=== PATIENT | female | born 1955 | race Native Hawaiian/Other Pacific Islander ===

== ENCOUNTER → 2017-12-27 | Outpatient (CLI) | payer MEDICARE ==
[~2017-12-27] MED LIST: DENOSUMAB 60 MG/ML 1 ML SYRINGE SQ ONE
[2017-12-27 13:57] VITALS: RESP 16
== END | disposition home or self-care (01) ==
LOC: PROCWHC3 13:38
PROVIDERS: ATTEND Internal Medicine Hematology & Oncology
DX: Z51.81 Encounter for therapeutic drug level monitoring (principal); Z79.811 Long term (current) use of aromatase inhibitors
CPT/HCPCS: 96372

== ENCOUNTER → 2018-12-11 | Day surgery (SDC) | payer MEDICARE | END | disposition home or self-care (01) | LOC: RADMRIMAIN 13:51 | PROVIDERS: ATTEND Internal Medicine Gastroenterology | DX: K50.90 Crohn's disease, unspecified, without complications (principal); Z53.9 Procedure and treatment not carried out, unspecified reason ==

== ENCOUNTER → 2018-12-11 | Outpatient (CLI) | payer MEDICARE ==
[2018-12-11 14:07] LABS: Blood Urea Nitrogen 11 mg/dL (7-17)
== END | disposition home or self-care (01) ==
LOC: RADMRIMAIN 13:29
PROVIDERS: ATTEND Internal Medicine Gastroenterology
DX: K50.90 Crohn's disease, unspecified, without complications (principal)
CPT/HCPCS: 82565; 84520

== ENCOUNTER → 2019-02-14 | Outpatient (CLI) | payer MEDICARE ==
[2019-02-14 13:48] LABS: Basophils # (A) 0.1 k/uL (0-0.2); Basophils % (A) 1 %; Eosinophils # (A) 0.3 k/uL (0-0.7); Eosinophils % (A) 3 %; HCT 41.7 % (34.0-46.0); HGB 13.6 gm/dL (11.4-16.0); Lymphocytes # (A) 3.1 k/uL (1.0-4.8); Lymphocytes % (A) 35 %; MCH 29.8 pg (25.0-35.0); MCHC 32.7 g/dL (31.0-37.0); Mean Platelet Volume 7.2; Monocytes # (A) 0.4 k/uL (0-1.0); Monocytes % (A) 5 %; Neutrophils # (A) 4.7 k/uL (1.3-7.7); Neutrophils % (A) 54 %; Platelet Count 241 k/uL (150-450); RBC 4.58 m/uL (3.80-5.40); RDW 14.1 % (11.5-15.5); WBC 8.6 k/uL (3.8-10.6)
== END ==
LOC: LABPAT 11:43
PROVIDERS: ATTEND Obstetrics & Gynecology
DX: Z01.812 Encounter for preprocedural laboratory examination (principal)
CPT/HCPCS: 85025

== ENCOUNTER 2019-02-18 06:28 | Day surgery (SDC) | payer MEDICARE ==
[2019-02-13 15:49] VITALS: BMI 37.5
[~2019-02-18 06:28] MED LIST changes: -DENOSUMAB 60 MG/ML 1 ML SYRINGE SQ ONE; +DEXAMETHASONE SOD PHOSPHATE 10 MG/ML 1 ML VIAL IV ONE; +LACTATED RINGERS 1,000 ML IV SCH; +MIDAZOLAM (PF) 2 MG/2 ML VIAL IV PRN; +ONDANSETRON 4 MG/2 ML VIAL IVP ONE; +Pre Op ABX Message 1 EACH MISC MISCELLANE ONE; +SCOPOLAMINE 1.5MG/72HR PATCH TRANSDERM ONE; +fentaNYL (PF) 50 MCG/ML 2 ML AMP IV PRN
[2019-02-18] MEDS ORDERED: LIDOCAINE 1% 20 ML VIAL (10MG/ML) FOR IV START INTRADERMA ONE (07:15)
[2019-02-18] MEDS ORDERED: MIDAZOLAM 2 MG/2 ML VIAL ONE (07:26)
[2019-02-18] MEDS ORDERED: PROPOFOL 10 MG/ML 20 ML VIAL IV ONE (07:26)
[2019-02-18] MEDS ORDERED: LIDOCAINE 1% INJ 10MG/ML (20 ML MDV) ONE (07:26)
[2019-02-18] MEDS ORDERED: fentaNYL (PF) 50 MCG/ML 2 ML AMP ONE (07:26)
[2019-02-18] MEDS ORDERED: SUCCINYLCHOLINE CHLORIDE 100 MG/5 ML SYR IV ONE (07:26)
[2019-02-18 07:30] LABS: Glucose,Whole Blood 149 mg/dL (75-99)
[2019-02-18] MEDS ORDERED: BUPIVACAINE (PF) 0.5% 30 ML VIAL SQ ONE ×2 (07:56)
--- NOTE | 2019-02-18 08:24 | P.OP ---
Date of Procedure: 02/18/19 Preoperative Diagnosis: Vulvar abscess Postoperative Diagnosis: Same Procedure(s) Performed: Wide local excision Anesthesia: SHREYA Surgeon: Rui Wall Estimated Blood Loss (ml): 5 Pathology: other (Pap smear and wide local excision of left labia) Condition: stable Disposition: same day Operative Findings: Wide local excision performed no fistulous tract could be identified, no discharge or drainage coming from abscess at time of excision Description of Procedure: Patient was taken to the operating suite where a general anesthetic was found be adequate. She was prepped and draped in normal sterile fashion and placed in dorsal lithotomy position. Initially a pediatric specialist speculum was used to obtain a Pap smear tissue was obtained and sent to pathology for evaluation. Once this was completed. Speculum was removed and using local anesthetic was injected around the abscess and skin change area. At the base of her abscess there was a approximately 1 x 1 cm skin change with potential for DEBBY and therefore needed excision. Once local anesthetic was injected was injected a 15 blade was used to create an elliptical incision around this area which was contiguous so the site was approximated 3.5 x 2 cm that was excised. Once compl etely excised was sent to pathology for evaluation. Once excised I did try and find a fistulous tract as about 5 cm superior to our excision site was the start of what appears to be her hernia in that she has a very very large hernia in her lower abdomen secondary to history of multiple other fistulous created from her Crohn's disease. I was unable to trace any areas that appear to be fistula back up into that area however. Once this was completed 3-0 Vicryl was used to reapproximate the skin in an interrupted fashion was very close sutures to ensure that they can did not separate are palpable apart. Once completed all incidents removed. Sponge, lap, needle counts were all correct 2. Patient was then taken to the recovery room in stable and satisfactory condition. Plan - Discharge Summary Discharge Rx Participant: No New Discharge Prescriptions: No Action Calcium Carbonate/Vitamin D3 [Calcium 600-Vit D3 400 Tablet] 1 tab PO DAILY Lisinopril [Zestril] 2.5 mg PO DAILY Anastrozole [Arimidex] 1 mg PO DAILY Venlafaxine HCl [Effexor] 75 mg PO DAILY Exenatide Microspheres [Bydureon Pen] 2 mg SQ JACINTO Morphine Sulfate 15 mg PO Q4H Discharge Medication List Anastrozole [Arimidex] 1 mg PO DAILY 12/27/17 [History] Calcium Carbonate/Vitamin D3 [Calcium 600-Vit D3 400 Tablet] 1 tab PO DAILY 12/27/17 [History] Lisinopril [Zestril] 2.5 mg PO DAILY 12/27/17 [History] Venlafaxine HCl [Effexor] 75 mg PO DAILY 12/27/17 [History] Exenatide Microspheres [Bydureon Pen] 2 mg SQ JACINTO 02/13/19 [History] Morphine Sulfate 15 mg PO Q4H 02/18/19 [History] Follow up Appointment(s)/Referral(s): Rui Wall DO [Doctor of Osteopathic Medicine] - 1 Week Activity/Diet/Wound Care/Special Instructions: No heavy lifting limited stairs and driving, pelvic rest. If any high temperatures, heavy bleeding, or severe pain call my office. Expect some oozing and bleeding around the incision Discharge Disposition: HOME SELF-CARE
[2019-02-18 08:25] VITALS: TEMP 96.9
[2019-02-18] MEDS ORDERED: HYDROmorphone 1 MG/ML 1 ML SYRINGE IVP ONE (08:40)
[2019-02-18 08:51] VITALS: RESP 16
[2019-02-18 09:07] VITALS: BP 107/70; PULSE 92
== END 2019-02-18 09:33 | disposition home or self-care (01) ==
LOC: OR 06:28
PROVIDERS: ATTEND Obstetrics & Gynecology
DX: N76.4 Abscess of vulva (principal); K50.90 Crohn's disease, unspecified, without complications; E11.9 Type 2 diabetes mellitus without complications; J43.9 Emphysema, unspecified; M85.80 Other specified disorders of bone density and structure, unspecified site; G35 Multiple sclerosis; Z86.711 Personal history of pulmonary embolism; Z85.3 Personal history of malignant neoplasm of breast; F32.9 Major depressive disorder, single episode, unspecified; M19.90 Unspecified osteoarthritis, unspecified site; I65.29 Occlusion and stenosis of unspecified carotid artery; I34.0 Nonrheumatic mitral (valve) insufficiency; Z79.891 Long term (current) use of opiate analgesic; Z90.49 Acquired absence of other specified parts of digestive tract; Z87.891 Personal history of nicotine dependence; Z79.84 Long term (current) use of oral hypoglycemic drugs; Z79.811 Long term (current) use of aromatase inhibitors; Z79.899 Other long term (current) drug therapy; Z88.2 Allergy status to sulfonamides
CPT/HCPCS: 88304; 11424; J2250; J1100; J2405; J2001; J3010; J1170; J0330; J2704

== ENCOUNTER → 2020-05-04 | Outpatient (CLI) | payer MEDICARE ==
[2020-05-04 13:38] VITALS: BP 139/83; PULSE 77; RESP 18
--- NOTE | 2020-05-04 14:43 | P.PAINCN ---
History of Present Illness - Reason for Consult Consult date: 05/04/20 - History of Present Illness This is a 64-year-old patient referred by Dr. Cruz with a chief complaint of chronic pain in thoracic region around T5-6 level. Pain began in July 2019, initially well managed with methocarbamol. Approximately 2 months ago, pain became worse. She does not describe any inciting event. Pain is described as a deep pressure, "bandlike", radiating to bilateral thoracic paraspinal muscles as well as up to bilateral shoulders. Pain is worse with standing, leaning forward over the counter and better with sitting, laying down. Pain is rated as 4/10 at best to 8/10 at worst. Patient has been taking medications from primary care physician including morphine 15 mg approximately every other day and methocarbamol. with some relief. She spent side effects from the morphine in the form of fatigue, drowsiness. Patient denies new-onset weakness, bowel/bladder incontinence, or any other signs or symptoms of cauda equina syndrome. There are no signs of acute intoxication, and no indications of medication diversion or overuse. Patient has not had surgery. Patient has not had injections previously. Of note, she has been diagnosed with multiple sclerosis in the past, she denies signs and symptoms from this and has not had a flare in over 10 years. In addition to above, 13-point review of systems is also negative for chest pain, shortness of breath, changes in vision, changes in hearing, new onset weakness, abdominal pain, diarrhea, extreme fatigue, malaise, fever, skin changes, homicidal or suicidal ideation, or bowel or bladder incontinence. Physical exam: Vital Signs: Reviewed in EMR GENERAL: Well appearing, in no acute distress PSYCH: Mood and affect is appropriate. Awake, alert, and oriented SKIN: Skin color, texture, turgor normal, no rashes or lesions HEENT: Normocephalic, atraumatic. EOM intact CV: No pedal edema RESP: Respirations are unlabored, no audible wheezing GI: Abdomen non-distended MUSCULOSKELETAL: Bilateral upper and lower extremity strength is normal and symmetric. No atrophy or tone abnormalities are noted. Neck: Mild tenderness to palpation over the cervical paraspinous muscles. Normal cervical lordotic curve Thoracic spine: Tenderness to palpation along T5-6 vertebrae and paraspinal musculature. Pain is increased with twisting motions of the thoracic spine. Lumbar spine:. No pain to palpation over the lumbar spine and paraspinous muscles. Extremities: Peripheral joint ROM is full and pain free without obvious instability or laxity in all four extremities. No edema or skin discolorations noted. Gait: Gait is normal NEUR: Bilateral upper extremity coordination and muscle stretch reflexes are physiologic and symmetric.No loss of sensation is noted. Cranial nerves are grossly intact. Imaging: X-ray thoracic spine done at [facility] on 04/01/2020 shows mild superior and inferior endplate compression in the region of T5 which is progressive from prior comparison. MRI thoracic spine done on 08/07/2019 shows levoconvex scoliosis along the upper third of the thoracic spine, chronic superior endplate Schmorl's nodes at T10 and chronic superior endplate deformity of T6. Mild degenerative disc disease and midthoracic spine with small posterior disc protrusions and inferior bowl mild intravertebral disc desiccation. No spinal canal stenosis. Assessment: 1. Thoracic compression deformity 2. Thoracic degenerative disc disease 3. Thoracic spondylosis 4. Obesity Plan: 1. Explanation: Diagnoses, prognoses, and multiple treatment options including but not limited to interventional therapies, medication managemenwere discussed with the patient and all questions were answered to the patient's satisfaction. 2. Investigations: X-ray and MRI thoracic spine reviewed 3. Counseling: None 4. Procedures: We will schedule T5-6 thoracic epidural steroid injection 5. Consultations: None 6. Medications: No changes 7. Disposition: For above-mentioned procedure Past Medical History Past Medical History: Blood Disorder, Cancer, COPD, Diabetes Mellitus, Neurologic Disorder, Pulmonary Embolus (PE) Additional Past Medical History / Comment(s): multiple sclerosis, crohns,breast cancer-33 tx radiation 2015,basal skin cancer ,squamous skin cancer, ITP "post surgical" bowel resection/hernia-had hematoma also post surgery" History of Any Multi-Drug Resistant Organisms: MRSA Year Discovered:: 2012 MDRO Source:: nose Past Surgical History: Appendectomy, Bowel Resection, Breast Surgery, Cholecystectomy, Hernia Repair Additional Past Surgical History / Comment(s): bowel resections, fistula repairs, rt breast lumpectomy Past Anesthesia/Blood Transfusion Reactions: No Reported Reaction, Family History of Problems w/ Anesthesia Additional Past Anesthesia/Blood Transfusion Reaction / Comm: 2 sister PONV,no problems with prior transfusion Smoking Status: Former smoker - Past Family History Father Family Medical History: Cancer Additional Family Medical History / Comment(s): esophageal cancer Mother Family Medical History: Rheumatoid Arthritis (RA) Additional Family Medical History / Comment(s): pulm hypertension Brother(s) Family Medical History: Cancer Additional Family Medical History / Comment(s): 1 brother prostate CA, 1 brother had jaw CA Sister(s) Family Medical History: Cancer Additional Family Medical History / Comment(s): 1 sister had cervical cancer, 1 sister had uterine cancer Medications and Allergies Home Medications Medication Instructions Recorded Confirmed Type Anastrozole [Arimidex] 1 mg PO DAILY 12/27/17 05/04/20 History Calcium Carbonate/Vitamin D3 2 tab PO DAILY 12/27/17 05/04/20 History [Calcium 600-Vit D3 400 Tablet] Lisinopril [Zestril] 2.5 mg PO DAILY 12/27/17 05/04/20 History Venlafaxine HCl [Effexor] 37.5 mg PO DAILY 12/27/17 05/04/20 History Morphine Sulfate 15 mg PO Q4H 02/18/19 05/04/20 History Dulaglutide [Trulicity] 0.75 mg SQ Q7D 04/29/20 05/04/20 History Allergies Allergy/AdvReac Type Severity Reaction Status Date / Time codeine Allergy severe Verified 04/29/20 15:00 Nausea sulfasalazine Allergy severe Verified 04/29/20 15:00 [From Azulfidine] headache PQRS Measure Charge Sheet Measure #130: Documentation of Current Meds in Medical Chart: Patient's medications documented in chart Measure #226: Tobacco Use: Screen & Cessation Intervention: Pt not a tobacco user Measure #111: Pneumonia Vaccination: Pneumococcal vaccine NOT administered or previously given Measure #47: Advance Care Plan: Advance care planning discussed & documented, pt chose/unable to give Measure #412: Opioid Treatment Agreement: No documentation of signed opioid treatment agreement Measure #408: Opioid Therapy Follow-up Evaluation: Patient had NO f/u eval minimum every 3 months during opioid therapy Measure #317: Preventitive Care & Scrn High Bld Press & F/U: Normal blood pressure, f/u not required Measure #128: Body Mass Index (BMI) Screening & Follow-up: BMI documented ABOVE normal parameters - f/u documented Measure #131: Pain Assessment & Follow-up: Pain positive & plan documented, Follow-up scheduled Measure #431: Unhealthy Alcohol Use Preventative Care & Scrn: Patient not identified as an unhealthy alcohol user PQRS Narrative: Smoking Status Former smoker Pain Intensity [Back] 6 Scale Used Numeric (1 - 10) Hx Alcohol Use (MH) No Home Medications: Ambulatory Orders Anastrozole [Arimidex] 1 mg PO DAILY 12/27/17 Calcium Carbonate/Vitamin D3 [Calcium 600-Vit D3 400 Tablet] 2 tab PO DAILY 12/27/17 Lisinopril [Zestril] 2.5 mg PO DAILY 12/27/17 Venlafaxine HCl [Effexor] 37.5 mg PO DAILY 12/27/17 Morphine Sulfate 15 mg PO Q4H 02/18/19 Dulaglutide [Trulicity] 0.75 mg SQ Q7D 04/29/20
== END | disposition home or self-care (01) ==
LOC: PNWHC3 12:48
PROVIDERS: ATTEND Anesthesiology
DX: M51.34 Other intervertebral disc degeneration, thoracic region (principal); M47.814 Spondylosis without myelopathy or radiculopathy, thoracic region; E66.9 Obesity, unspecified; M43.8X4 Other specified deforming dorsopathies, thoracic region; Z79.891 Long term (current) use of opiate analgesic; Z79.899 Other long term (current) drug therapy; Z88.5 Allergy status to narcotic agent; Z88.2 Allergy status to sulfonamides; Z87.891 Personal history of nicotine dependence
CPT/HCPCS: 99201

== ENCOUNTER 2020-05-13 10:30 | Day surgery (SDC) | payer MEDICARE ==
[2020-05-10 16:20] VITALS: BMI 37.5
[2020-05-13] MEDS ORDERED: LACTATED RINGERS 1,000 ML IV SCH (10:37)
[2020-05-13 10:47] VITALS: RESP 16; TEMP 98.3
[2020-05-13] MEDS ORDERED: LIDOCAINE 1% (10MG/ML) FOR IV START INTRADERMA ONE (11:05)
[2020-05-13 11:09] LABS: Glucose,Whole Blood 105 mg/dL (75-99)
[2020-05-13] MEDS ORDERED: fentaNYL (PF) 50 MCG/ML 2 ML AMP ONE (11:29)
[2020-05-13] MEDS ORDERED: DEXAMETHASONE SOD PHOSPHATE 10 MG/ML 1 ML VIAL ONE (11:29)
[2020-05-13] MEDS ORDERED: MIDAZOLAM 2 MG/2 ML VIAL ONE (11:29)
[2020-05-13] MEDS ORDERED: IOPAMIDOL M200 10 ML VIAL ONE (11:29)
--- NOTE | 2020-05-13 12:08 | P.PCN ---
Date of Procedure: 05/13/20 Procedure(s) Performed: Diagnosis: thoracic radiculopathy thoracic degenerative disc disease POSTOPERATIVE DIAGNOSIS: Diagnoses: thoracic radiculopathy thoracic degenerative disc disease PROCEDURE thoracic Epidural steroid injection under fluoroscopic guidance at the T5-6 interspace using right paramedian approach thoracic epidurogram ANESTHESIA: Local with 1% lidocaine 3 ml and IV sedation with Versed and fentanyl, sedation time 23 minutes Fluoroscopy was used for the procedure and images were saved in the radiology portion of the chart. EBL: Minimal PROCEDURE INDICATION: The patient presents with thoracic radicular symptoms unresponsive to conservative treatment. This is the first thoracic epidural steroid injection. PROCEDURE DESCRIPTION / TECHNIQUE: The patient was seen and identified in the preoperative area. Risks, benefits, complications including but not limited to infections ,bleeding ,allergic reaction to the medications ,nerve damage and incomplete pain relief, and alternatives were discussed with the patient. The patient agreed to proceed with the procedure and signed the consent. IV was started, and vital signs were stable. Patient was taken to the OR and time out was completed. The patient was placed in the prone position on procedure table and a pillow was placed under the chest area. The thoracic area was prepped and draped in the usual sterile fashion. Conscious sedation was used during the procedure to decrease patients anxiety. Vital signs was monitored during the entire procedure. Using anterior-posterior fluoroscopy, the T5-6 interlaminar space was identified by counting from the C7 vertebral level and the skin over this site was marked and then infiltrated with 1% lidocaine subcutaneously. Subsequently, a 20-gauge Tuohy epidural needle was inserted and advanced toward the epidural space using the loss of resistance technique and guided by AP and lateral fluoroscopy. The correct needle position in the epidural space was verified. After negative aspiration for blood and CSF and in the absence of paresthesias, Isovue 200 2 m L's was injected under live fluoroscopy with good epidural spread. After negative aspiration, a 5 ml mixture containing 10 mg of dexamethasone, 3 mL of preservative free normal saline and 1 mL of 1% lidocaine was injected. Needle was withdrawn intact, skin was cleansed, and bandages were applied. COMPLICATIONS: None DISPOSITION / PLANS: The patient was placed in a supine position and transferred to the recovery area in a stable condition for observation. There was no evidence of lower extremity motor or sensory deficit after the procedure. Patient was discharged from the recovery room after meeting discharge criteria. Home discharge instructions were given to the patient by the staff. The patient will be scheduled a repeat procedure in 4 weeks.
[2020-05-13] MEDS ORDERED: IV FLUID CONTINUATION 1,000 ML IV ONE (12:10)
--- NOTE | 2020-05-13 12:17 | FL ---
Fluoroscopy HISTORY: Pain 24 seconds fluoroscopy time supplied to the referring clinician. 3 intraoperative C-arm images docum ent the procedure. See dictated report from anesthesia.
[2020-05-13 12:27] VITALS: BP 145/84; PULSE 90
== END 2020-05-13 12:36 | disposition home or self-care (01) ==
LOC: ORPAIN 10:30
PROVIDERS: ATTEND Anesthesiology
DX: M51.14 Intervertebral disc disorders with radiculopathy, thoracic region (principal); M47.24 Other spondylosis with radiculopathy, thoracic region; J44.9 Chronic obstructive pulmonary disease, unspecified; G96.9 Disorder of central nervous system, unspecified; E11.9 Type 2 diabetes mellitus without complications; D75.9 Disease of blood and blood-forming organs, unspecified; E66.9 Obesity, unspecified; Z87.891 Personal history of nicotine dependence; Z85.828 Personal history of other malignant neoplasm of skin; Z86.711 Personal history of pulmonary embolism; Z86.69 Personal history of other diseases of the nervous system and sense organs; Z85.3 Personal history of malignant neoplasm of breast; Z87.19 Personal history of other diseases of the digestive system; Z80.0 Family history of malignant neoplasm of digestive organs; Z82.41 Family history of sudden cardiac death; Z82.49 Family history of ischemic heart disease and other diseases of the circulatory system; Z80.42 Family history of malignant neoplasm of prostate; Z80.8 Family history of malignant neoplasm of other organs or systems; Z90.49 Acquired absence of other specified parts of digestive tract; Z98.890 Other specified postprocedural states; Z88.2 Allergy status to sulfonamides; Z88.5 Allergy status to narcotic agent; Z79.52 Long term (current) use of systemic steroids; Z79.84 Long term (current) use of oral hypoglycemic drugs; Z79.899 Other long term (current) drug therapy; Z79.811 Long term (current) use of aromatase inhibitors; Z79.891 Long term (current) use of opiate analgesic; Z68.37 Body mass index [BMI] 37.0-37.9, adult
CPT/HCPCS: 62321; J2250; J1100; J3010; Q9966; 99152; 99153

== ENCOUNTER → 2020-06-02 | Outpatient (CLI) | payer MEDICARE ==
[2020-06-02 13:11] VITALS: BP 125/77; PULSE 81; RESP 16; TEMP 95
--- NOTE | 2020-06-02 13:44 | P.PAINPG ---
Subjective Progress Note Date: 06/01/20 This is a 64-year-old patient originally was referred by Dr. Cruz with a chief complaint of chronic pain in thoracic region around T5-6 level. To recap Pain began in July 2019, initially well managed with methocarbamol. Approximately 2 months ago, pain became worse. She does not describe any inciting event. Patient denies new-onset weakness, bowel/bladder incontinence, or any other signs or symptoms of cauda equina syndrome. There are no signs of acute intoxication, and no indications of medication diversion or overuse. On May 13 2020 we performed a T5 to T6 epidural steroid injection with the right paramedian approach. She is here for followup Patient notes that her recent epidural steroid injection did not help at all. Pain is described as a deep pressure, "bandlike", radiating to bilateral thoracic paraspinal muscles as well as up to bilateral shoulders. Pain is worse with standing, leaning forward over the counter and better with sitting, laying down. Pain is rated as 4/10 at best to 8/10 at worst. Patient has been taking medications from primary care physician including morphine 15 mg approximately every other day and methocarbamol. with some relief. She spent side effects from the morphine in the form of fatigue, drowsiness. Of note, she has been diagnosed with multiple sclerosis in the past, she denies signs and symptoms from this and has not had a flare in over 10 years. In addition to above, 13-point review of systems is also negative for chest pain, shortness of breath, changes in vision, changes in hearing, new onset weakness, abdominal pain, diarrhea, extreme fatigue, malaise, fever, skin changes, homicidal or suicidal ideation, or bowel or bladder incontinence. Physical exam: Vital Signs: Reviewed in EMR GENERAL: Well appearing, in no acute distress PSYCH: Mood and affect is appropriate. Awake, alert, and oriented SKIN: Skin color, texture, turgor normal, no rashes or lesions HEENT: Normocephalic, atraumatic. EOM intact CV: No pedal edema RESP: Respirations are unlabored, no audible wheezing GI: Abdomen non-distended MUSCULOSKELETAL: Bilateral upper and lower extremity strength is normal and symmetric. No atrophy or tone abnormalities are noted. Neck: Mild tenderness to palpation over the cervical paraspinous muscles. Normal cervical lordotic curve Thoracic spine: Tenderness to palpation along T5-8 vertebrae and paraspinal musculature. Pain is increased with twisting motions of the thoracic spine. Multiple trigger points present over the paraspinal musculature Lumbar spine:. No pain to palpation over the lumbar spine and paraspinous muscles. Extremities: Peripheral joint ROM is full and pain free without obvious instability or laxity in all four extremities. No edema or skin discolorations noted. Gait: Gait is normal NEUR: Bilateral upper extremity coordination and muscle stretch reflexes are physiologic and symmetric.No loss of sensation is noted. Cranial nerves are grossly intact. Imaging: X-ray thoracic spine done at [facility] on 04/01/2020 shows mild superior and inferior endplate compression in the region of T5 which is progressive from prior comparison. MRI thoracic spine done on 08/07/2019 shows levoconvex scoliosis along the upper third of the thoracic spine, chronic superior endplate Schmorl's nodes at T10 and chronic superior endplate deformity of T6. Mild degenerative disc disease and midthoracic spine with small posterior disc protrusions and inferior bowl mild intravertebral disc desiccation. No spinal canal stenosis. Assessment: 1. Thoracic compression deformity 2. Thoracic degenerative disc disease 3. Thoracic spondylosis 4. Obesity Plan: 1. Explanation: Diagnoses, prognoses, and multiple treatment options including but not limited to interventional therapies, medication managemenwere discussed with the patient and all questions were answered to the patient's satisfaction. 2. Investigations: X-ray and MRI thoracic spine reviewed. Patient had a question given the fact that the x-ray does mention a small compression at the region of T5 with the MRI does not. She wonders kyphoplasty would be a good option for her. At this point it is not clear that a kyphoplasty would help her her pain given that I'm not sure what the acuity of the fracture. 3. Counseling: None 4. Procedures: We will schedule for bilateral thoracic paraspinal trigger points. Also would like to inject her scapulothoracic bursa which is a common etiology for pain around the bra line radiating outwards, can be done same trigger point approach on the day of the procedure. In regards to her interest in kyphoplasty, I mentioned that we could consider a referral to neurosurgery for her if trigger points did not help. We did also long talk about the thought of a medial branch workup for this type of pain which she would be willing to try if the trigger points did not work. 5. Consultations: None 6. Medications: No changes 7. Disposition: For thoracic trigger point injections PQRS Measure Charge Sheet Measure #226: Tobacco Use: Screen & Cessation Intervention: Pt not a tobacco user Measure #111: Pneumonia Vaccination: Pneumococcal vaccine administered or previously received Measure #47: Advance Care Plan: Advance care planning discussed & documented, pt chose/unable to give Measure #412: Opioid Treatment Agreement: No documentation of signed opioid treatment agreement Measure #408: Opioid Therapy Follow-up Evaluation: Patient had NO f/u eval minimum every 3 months during opioid therapy Measure #131: Pain Assessment & Follow-up: Pain positive & plan documented, Follow-up scheduled PQRS Narrative: Smoking Status Former smoker Pain Intensity [Back] 5 Scale Used Numeric (1 - 10) Hx Alcohol Use (MH) No Home Medications: Ambulatory Orders Anastrozole [Arimidex] 1 mg PO DAILY 12/27/17 Venlafaxine HCl [Effexor] 37.5 mg PO DAILY 12/27/17 lisinopriL [Zestril] 2.5 mg PO DAILY 12/27/17 Morphine Sulfate 15 mg PO DAILY PRN 02/18/19 Dulaglutide [Trulicity] 0.75 mg SQ Q7D 04/29/20 Calcium Carbonate/Vitamin D3 [Calcium 600-Vit D3 800 Caplet] 2 each PO DAILY 05/10/20 Controlled Substance Measures - Controlled Substance Measures Is patient prescribed a controlled substance at discharge?: No
== END | disposition home or self-care (01) ==
LOC: PNWHC3 12:46
PROVIDERS: ATTEND Anesthesiology
DX: M51.34 Other intervertebral disc degeneration, thoracic region (principal); M47.814 Spondylosis without myelopathy or radiculopathy, thoracic region; M53.84 Other specified dorsopathies, thoracic region; E66.9 Obesity, unspecified; Z68.37 Body mass index [BMI] 37.0-37.9, adult; Z79.899 Other long term (current) drug therapy; Z79.891 Long term (current) use of opiate analgesic
CPT/HCPCS: 99211

== ENCOUNTER 2020-06-08 11:24 | Day surgery (SDC) | payer MEDICARE ==
[2020-06-08 11:44] VITALS: RESP 16; TEMP 98.5
[2020-06-08] MEDS ORDERED: LACTATED RINGERS 1,000 ML IV ONE (11:51)
[2020-06-08] MEDS ORDERED: LIDOCAINE 1% (10MG/ML) FOR IV START INTRADERMA ONE (11:52)
--- NOTE | 2020-06-08 12:27 | P.PCN ---
Date of Procedure: 06/08/20 Procedure(s) Performed: PREOPERATIVE DIAGNOSIS: 1- thoracic Degenerative Disc Diseases 2-thoracic spondylosis with Facet arthropathy without myelopathy. 3-myofascial pain syndrome thoracic area POSTOPERATIVE DIAGNOSIS: Same as preoperative diagnosis PROCEDURE Trigger point injection thoracic paraspinal muscles 3 on the right side thoracic paraspinal muscles around T5 to T8 on the right side, and 3 trigger point injected on the left side thoracic paraspinal muscles from T5 to T8. ANESTHESIA: Local with 1% lidocaine 3 ml and , moderate sedation with intravenous Versed 2 mg ,and fentanyle 50 Mcg EBL: Minimal PROCEDURE INDICATION: The patient with mid back pain and symptoms unresponsive to conservative treatment. Fluoroscopy was used to optimize visualization of the needle placement and to maximize safety. PROCEDURE DESCRIPTION / TECHNIQUE: The patient was seen and identified in the preoperative area. Risks, benefits, complications including but not limited to infections ,bleeding ,allergic reaction to the medications ,nerve damage and not complete pain releife , and alternatives were discussed with the patient. The patient agreed to proceed with the procedure and signed the consent. IV was started, and vital signs were stable. Patient was taken to the OR and time out was completed. The patient was placed in the sitting position and in the thoracic area prepped with chlorhexidine 3 then under sterile technique each of the trigger point injected with ropivacaine 0.5% 3 mL using 22-gauge needle, injection then after negative aspiration and there was no paresthesia during the injection, 3 points injected on the right side thoracic paraspinal muscles from T5 to T8, +3 trigger point injected on the left side thoracic paravertebral muscles from T5 to T8, patient tolerated the procedure well without any complications, and patient will follow up in the pain clinic in a few weeks for evaluation COMPLICATIONS: None DISPOSITION / PLANS: The patient was placed in a supine position and transferred to the recovery area in a stable condition for observation. There was no evidence of lower extremity motor or sensory deficit after the procedure. Patient was discharged from the recovery room after meeting discharge criteria. Home discharge instructions were given to the patient by the staff. The patient was reexamined prior to discharge. The patient will schedule a follow up in the clinic in 2-4 weeks.
[2020-06-08] MEDS ORDERED: IV FLUID CONTINUATION 1,000 ML IV ONE (12:29)
[2020-06-08] MEDS ORDERED: ROPIVACAINE 5MG/ML 20ML VIAL ONE (12:30)
[2020-06-08] MEDS ORDERED: fentaNYL (PF) 50 MCG/ML 2 ML AMP ONE (12:30)
[2020-06-08] MEDS ORDERED: MIDAZOLAM 2 MG/2 ML VIAL ONE (12:30)
[2020-06-08 12:45] VITALS: BP 103/67; PULSE 86
[2020-06-11 07:49] LABS: Glucose,Whole Blood 100 mg/dL (75-99)
== END 2020-06-08 13:03 ==
LOC: ORPAIN 11:24
PROVIDERS: ATTEND Specialist
DX: M79.18 Myalgia, other site (principal); M47.814 Spondylosis without myelopathy or radiculopathy, thoracic region; M51.34 Other intervertebral disc degeneration, thoracic region; E11.9 Type 2 diabetes mellitus without complications; Z78.0 Asymptomatic menopausal state; Z88.5 Allergy status to narcotic agent; Z88.2 Allergy status to sulfonamides
CPT/HCPCS: 20553; J2250; J3010; J2795

== ENCOUNTER → 2020-06-28 | Outpatient (CLI) | payer MEDICARE ==
[2020-06-28 12:55] VITALS: BP 134/83; PULSE 97; RESP 14; TEMP 97.5
--- NOTE | 2020-06-28 12:59 | P.PN ---
Subjective Progress Note Date: 06/28/20 This is a 64-year-old lady with chronic history of mid back pain which started about one year ago with no precipitating events. The pain goes across her mid thoracic area at the bra level but does not radiate around the chest it stops at the sides of the ribs. The patient does not get worse with deep inhalation. The patient denies any numbness or tingling in the area. The pain is constant however it does get worse with standing and bending over. The patient failed to respond to multiple procedures before including trigger point injection and thoracic epidural steroid injection. The patient still uses morphine sulfate 50 mg once every other day and she gets that from her primary care physician. Patient denies new-onset weakness, bowel/bladder incontinence, or any other signs or symptoms of cauda equina syndrome. There are no signs of acute intoxication, and no indications of medication diversion or overuse. In addition to above, 13-point review of systems is also negative for chest pain, shortness of breath, changes in vision, changes in hearing, new onset weakness, abdominal pain, diarrhea, extreme fatigue, malaise, fever, skin changes, homicidal or suicidal ideation, or bowel or bladder incontinence. Vital Signs: Reviewed in EMR Gen: AAOx3, NAD HEENT: PERRLA,hearing grossly normal Pulm: resp unlabored Heart: Regular Neck: supple, trachea midline Facet loading test: Tenderness in the paravertebral musculature: Positive in the midthoracic area from T6, 7, and 8 Neuro: CN II-XII grossly intact, Imaging: Reviewed in EMR/chart Assessment: Thoracic spondylosis without myelopathy Obesity Well-controlled diabetes Plan: 1. Explanation: Opioid and psychological risk scores were reviewed. Diagnoses, prognoses, and multiple treatment options including but not limited to physical therapy, interventional therapies, adjuvant medical therapies, narcotic medication therapies, and surgery were discussed with the patient and all questions were answered to the patient's satisfaction. 2. Opioid agreement: No opioids are prescribed to the patient from our clinic 3. Counseling: The patient was counseled extensively on SMOKING CESSATION, BODY MASS INDEX, EXERCISE. Specifically, the patient was instructed regarding the importance of smoking cessation, obesity, and exercise in the context of both chronic pain and overall health. 4. Procedures: Scheduled for a diagnostic thoracic medial branch block bilaterally under fluoroscopic guidance the levels should be decided at the time of the procedure however roughly the levels should be around T6, T7, and T8 5. Consultations: None 6. Investigations: None 7. Medications: None 8. Disposition: Return to clinic in 4 weeks 9. Maps were reviewed and were appropriate.
== END | disposition home or self-care (01) ==
LOC: PNWHC3 12:25
PROVIDERS: ATTEND Anesthesiology
DX: M47.814 Spondylosis without myelopathy or radiculopathy, thoracic region (principal); E66.9 Obesity, unspecified; E11.9 Type 2 diabetes mellitus without complications
CPT/HCPCS: 99211

== ENCOUNTER 2020-07-01 08:16 | Day surgery (SDC) | payer MEDICARE ==
[2020-07-01 08:30] VITALS: TEMP 97
[2020-07-01] MEDS ORDERED: LACTATED RINGERS 1,000 ML IV ONE (08:42)
[2020-07-01 08:46] LABS: Glucose,Whole Blood 110 mg/dL (75-99)
[2020-07-01] MEDS ORDERED: fentaNYL (PF) 50 MCG/ML 2 ML AMP ONE (08:48)
[2020-07-01] MEDS ORDERED: MIDAZOLAM 2 MG/2 ML VIAL ONE (08:48)
[2020-07-01] MEDS ORDERED: ROPIVACAINE 5MG/ML 20ML VIAL ONE (08:48)
[2020-07-01] MEDS ORDERED: TRIAMCINOLONE ACETONIDE 40 MG/ML 1 ML VIAL ONE (08:48)
--- NOTE | 2020-07-01 09:28 | P.PCN ---
Date of Procedure: 07/01/20 Surgeon: Samia Epps Pathology: none sent Condition: stable Disposition: PACU Description of Procedure: Medical diagnosis: Thoracic spondylosis without myelopathy Name of procedure: Bilateral thoracic medial branch block under fluoroscopic guidance for levels T7,T8, T9, T10, and T11 Anesthesia: Local with lidocaine 1% and 2 mg of IV Versed Physician:Samia Epps MD Description of procedure: The patient was seen in the preop holding area consent was obtained then she was brought into the procedure when placed in prone position. Skin was prepped with ChloraPrep and draped in a sterile manner. Lid ocaine 1% was used to numb the skin up at the target points that were chosen as follows: The superio- lateral angle of each transverse process starting from T7 to T9 was identified on the contralateral oblique view of fluoroscopy. For the T10 and T11 levels with eye of the Leonel dog was targeted on the epsilateral oblique view of fluoroscopy. I then used 25-gauge 3-1/2 inch Quincke spinal needle to go through the skin and to contact bone at the above-mentioned target points. I then injected 1 mL of a solution made up of 9 MLS of ropivacaine 0.5% and 40 mg of Kenalog. The needles then were taken out intact. The same procedure was repeated in the same manner on the contralateral side. The patient tolerated procedure well. The patient was transferred to PACU in stable condition with no complications. A portable upright chest x-ray will be ordered in PACU to rule out pneumothorax. The picture of needle placement was saved to the C-arm machine.
[2020-07-01] MEDS ORDERED: IV FLUID CONTINUATION 1,000 ML IV ONE (09:39)
--- NOTE | 2020-07-01 09:46 | FL ---
Fluoroscopy History: THORACIC FACET 1:03 FL TIME
[2020-07-01 09:55] VITALS: BP 129/82; PULSE 90; RESP 18
--- NOTE | 2020-07-01 10:02 | XR ---
EXAMINATION TYPE: XR chest 1V portable DATE OF EXAM: 07/01/2020 HISTORY: Shortness of breath. COMPARISON: None. TECHNIQUE: Single view of the chest is submitted. FINDINGS: Demonstrated are scattered senescent parenchymal change. There is no evidence for focal infiltrate. The heart is stable. Hilar and mediastinal structures are within normal limits. Degenerative changes are seen of the dorsal spine. IMPRESSION: 1. Chronic changes without evidence for acute pulmonary disease.
== END 2020-07-01 10:16 | disposition home or self-care (01) ==
LOC: ORPAIN 08:16
PROVIDERS: ATTEND Anesthesiology
DX: M47.814 Spondylosis without myelopathy or radiculopathy, thoracic region (principal); E11.9 Type 2 diabetes mellitus without complications; G35 Multiple sclerosis; Z78.0 Asymptomatic menopausal state; Z88.5 Allergy status to narcotic agent; Z88.2 Allergy status to sulfonamides; Z86.711 Personal history of pulmonary embolism
CPT/HCPCS: 71045; 64490; 64491; 64492; J2250; J3301; J3010; J2795; 99152; 99153

== ENCOUNTER → 2020-07-21 | Outpatient (CLI) | payer MEDICARE ==
[2020-07-21 14:04] VITALS: RESP 20
[2020-07-21 14:17] VITALS: BP 134/83; PULSE 95; TEMP 98.3
--- NOTE | 2020-07-21 14:29 | P.PN ---
Subjective Progress Note Date: 07/21/20 This is follow-up visit for this patient with a history of mid back pain she is diagnosed with thoracic spondylosis with thoracic facet arthropathy without myelopathy and thoracic degenerative disc disease and myofascial pain syndrome thoracic area, recently we did diagnostic medial branch block thoracic area bilaterally at T7, T8, T9, T10, T11, the VAS before the block was 5/10 on the dropped to 0/10 for a few hours after the block, patient denies any motor or sensory deficit she denies any fever or numbness with an that is no change in the bowel movements or urination Objective - Vital Signs Vital signs: Vital Signs Temp 98.3 F 07/21/20 13:56 Pulse 95 07/21/20 13:56 Resp 20 07/21/20 13:56 BP 134/83 07/21/20 13:56 Pulse Ox 94 L 07/21/20 13:56 Intake & Output 07/20/20 07/21/20 07/21/20 18:59 06:59 18:59 Weight 108.409 kg - Exam Physical Examinations : -Constitutiona : Cooperative , not in acute distress . -HEENT : nech : supple , no Lymphadenopathy , normal thyroid size . : eyes : no ptosis , no icterus, no photophobia . - neurologic : Cranial nerve II to XII intact , no focal neurological deffecit . -psychatric : alert , oriented X 3 , appropriate affect , intact judgment and insight . -Lymphatic : no Lymphadenopathy . - musculoskeltal : Thoracic Spine Thoracic facet loading test= Positive Bilaterally Lumber spine moter stegnth lower extremities ,thigh and legs 5/5 Right side , 5/5 Left side Assessment and Plan Plan: Assessment and plan=1-thoracic spondylosis with thoracic facet arthropathy without myelopathy 2-thoracic degenerative disc disease. 3-myofascial pain syndrome thoracic area. Patient had excellent pain relief after diagnostic medial branch blocks thoracic area to T7, T8, T9, T10, T11 Patient will be good candidate to have a repeat diagnostic medial branch block at the levels mentioned above - PQRS measures = - Patient's medications are documented in the chart. -Tobacco use is negative and counseling.Given. -Patient's has received pneumococcal vaccine. -Advanced care planning discussed, patient not eligible. -Opiate contract signed. -Pain positive and follow-up visit/procedure is scheduled. -Patient's blood pressure measured [134/83 ] , and documented in the record ,and patient will follow up with the primary care. -Patient's weight was measured and body mass index above the normal limits and counseling was done. and patient instructed to follow-up with the primary care physician. -Patient was not identified as an unhealthy alcohol user Time with Patient: Less than 30
== END | disposition home or self-care (01) ==
LOC: PNWHC3 13:43
PROVIDERS: ATTEND Specialist
DX: M51.34 Other intervertebral disc degeneration, thoracic region (principal); M47.814 Spondylosis without myelopathy or radiculopathy, thoracic region; M79.18 Myalgia, other site
CPT/HCPCS: 99211

== ENCOUNTER 2020-08-05 09:29 | Day surgery (SDC) | payer MEDICARE ==
[~2020-08-05 09:29] MED LIST changes: -DEXAMETHASONE SOD PHOSPHATE 10 MG/ML 1 ML VIAL IV ONE; -MIDAZOLAM (PF) 2 MG/2 ML VIAL IV PRN; -ONDANSETRON 4 MG/2 ML VIAL IVP ONE; -Pre Op ABX Message 1 EACH MISC MISCELLANE ONE; -SCOPOLAMINE 1.5MG/72HR PATCH TRANSDERM ONE; -fentaNYL (PF) 50 MCG/ML 2 ML AMP IV PRN
[2020-08-05] MEDS ORDERED: LIDOCAINE 1% (10MG/ML) FOR IV START INTRADERMA ONE (11:33)
[2020-08-05 11:35] LABS: Glucose,Whole Blood 94 mg/dL (75-99)
[2020-08-05 11:38] VITALS: TEMP 97.3
[2020-08-05] MEDS ORDERED: MIDAZOLAM 2 MG/2 ML VIAL ONE (11:47)
[2020-08-05] MEDS ORDERED: fentaNYL (PF) 50 MCG/ML 2 ML AMP ONE (11:47)
[2020-08-05] MEDS ORDERED: methylPREDNISolone ACETATE 40 MG/ML 1 ML VIAL ONE (11:47)
[2020-08-05] MEDS ORDERED: ROPIVACAINE 5MG/ML 20ML VIAL ONE (11:47)
--- NOTE | 2020-08-05 12:19 | P.PCN ---
Date of Procedure: 08/05/20 Procedure(s) Performed: PREOPERATIVE DIAGNOSIS : 1- Thoracic spondylosis with Facet Arthropathy without myelopathy . POSTOPERATIVE DIAGNOSIS: 1- thoracic spondylosis with Facet Arthropathy without myelopathy . PROCEDURE: Diagnostic bilateral T7 ,T8 , T9 ,T10 ,T11 medial branch block under fluoroscopy guidance(fluoroscopy images available in the radiology Department ) ANESTHESIA:, moderate sedation with intravenous Versed 3 mg and Fentanyl 100 mcg. EBL: Minimal COMPLICATION: None PROCEDURE INDICATION: Chronic low back pain secondary to Facet arthropathy unresponsive to conservative treatment. PROCEDURE DESCRIPTION: the patient was seen and identified in the preop holding area , risks and benefits and possible complications of the procedure and alternative were discussed with the patient, and the patient agreed to proceed with the procedure and signed the consent and vital signs monitored during the procedure and fluoroscopy was used to maximize the benefit and accuracy of the needle placement, and sedation was given to decrease patient anxiety, patient was taken to the procedure room and placed in prone position vital signs monitored in the back prepped with chlorhexidine X3 then under stri ct sterile technique using a right oblique fluoroscopy ,the junction of the transverse process and the superior articulating process of the right T7, T8 ,T9 ,T10 ,T11 vertebra which corresponding to the fluoroscopy image of the eye of the Leonel dog on the block side for the medial branches and subsequently , after local infiltration of skin and subcu tissuies with Ropivacaine 0.5 % , one mL at each level ,then 25-gauge Quincke-type needles , 5 needle was used , each one of them placed at the junction of the base of the transverse process and the superior articular process at the appropriate level, and the needle was advanced until the periosteum contacted, needle placement confirmed with AP oblique and lateral view and after appropriate needle placement confirmed, and after negative aspiration for heme and CSF and there was no paresthesia 21/2 mL of Ropivacaine 0.5% mixed with 20 mg Depo-Medrol , then half mL injected at each level after negative aspiration the needle subsequently removed and the same procedure repeated for the left side at left side at T7,T8 ,T9, T10, T11 levels. At the end of the procedure and the needles removed and a bandage applied after the skin was cleaned the cleaning solution patient taken to recovery room in stable condition and monitors in the recovery room for 20-30 minutes and discharged home in stable condition after discharge criteria met and patient will follow up with the pain clinic in 2-4 weeks
[2020-08-05] MEDS ORDERED: IV FLUID CONTINUATION 1,000 ML IV ONE (12:23)
[2020-08-05 12:30] VITALS: RESP 16
--- NOTE | 2020-08-05 12:41 | FL ---
EXAMINATION TYPE: FL guided pain mgmt statistic DATE OF EXAM: 08/05/2020 CLINICAL HISTORY: Mid back pain. TECHNIQUE: Fluoroscopy. COMPARISON: None. FINDINGS: Fluoroscopic guidance was provided during pain relief procedure performed by Dr. Pantoja . A total of 27 seconds of fluoroscopic time was utilized during the procedure and 5 spot images are acquired. Images acquired shows needle localization at multiple levels in the thoracic spine. IMPRESSION: As Above.
[2020-08-05 13:08] VITALS: BP 126/68; PULSE 84
--- NOTE | 2020-08-05 13:47 | XR ---
EXAMINATION TYPE: XR chest 1V portable DATE OF EXAM: 08/05/2020 COMPARISON: CXR dated 07/01/2020. HISTORY: Thoracic spine injection. TECHNIQUE: Single AP portable upright frontal view of the chest is obtained. FINDINGS: There is chronic parenchymal change redemonstrated without suspicious focal air space opac ity, pleural effusion, or pneumothorax seen. The cardiac silhouette size is upper limits of normal w ith atherosclerotic change thoracic aorta. The osseous structures are intact. IMPRESSION: No Pneumothorax noted bilaterally.
== END 2020-08-05 13:38 | disposition home or self-care (01) ==
LOC: ORPAIN 09:29
PROVIDERS: ATTEND Specialist
DX: G89.29 Other chronic pain (principal); M47.814 Spondylosis without myelopathy or radiculopathy, thoracic region; Z88.5 Allergy status to narcotic agent; Z88.2 Allergy status to sulfonamides
CPT/HCPCS: 71045; 64490; 64491; 64492; J2250; J1030; J3010; J2795; 99152

== ENCOUNTER → 2020-09-01 | Outpatient (CLI) | payer MEDICARE ==
[2020-09-01 12:39] VITALS: BP 149/88; PULSE 92; RESP 20; TEMP 97.8
--- NOTE | 2020-09-01 12:45 | P.PAINPG ---
Subjective Progress Note Date: 09/01/20 This is follow-up visit for this patient with a history of mid back pain she is diagnosed with thoracic spondylosis with thoracic facet arthropathy without myelopathy and thoracic degenerative disc disease and myofascial pain syndrome thoracic area, recently we did diagnostic medial branch block thoracic area bilaterally at T7, T8, T9, T10, T11 #2 the VAS before the block was 5/10 on the dropped to 0/10 for a few hours after the block, patient denies any motor or sensory deficit she denies any fever or numbness with an that is no change in the bowel movements or urination As you great relief for medial branch blocks and would like to proceed with RFA. Pain is still located in the mid low back described as sharp and stabbing occasional radiation out towards the flanks. Review of systems is negative for chest pain, shortness of breath, new onset weakness, numbness/tingling, abdominal pain, malaise, fever, night sweats, chills, homicidal or suicidal ideation, or bowel or bladder incontinence. - Exam Physical Examinations : -Constitutiona : Cooperative , not in acute distress . -HEENT : nech : supple , no Lymphadenopathy , normal thyroid size . : eyes : no ptosis , no icterus, no photophobia . - neurologic : Cranial nerve II to XII intact , no focal neurological deffecit . -psychatric : alert , oriented X 3 , appropriate affect , intact judgment and insight . -Lymphatic : no Lymphadenopathy . - musculoskeltal : Thoracic Spine Thoracic facet loading test= Positive Bilaterally Lumber spine moter stegnth lower extremities ,thigh and legs 5/5 Right side , 5/5 Left side Assessment and Plan Plan: Assessment and plan=1-thoracic spondylosis with thoracic facet arthropathy without myelopathy 2-thoracic degenerative disc disease. 3-myofascial pain syndrome thoracic area. Patient had excellent pain relief after diagnostic medial branch blocks thoracic area to T7, T8, T9, T10, T11 Patient will be good candidate for RFA T7-T8, T8- T9, T9-T10, T10-T11. will do one side at a time - PQRS measures = - Patient's medications are documented in the chart. -Tobacco use is negative and counseling.Given. -Patient's has received pneumococcal vaccine. -Advanced care planning discussed, patient not eligible. -Opiate contract signed. -Pain positive and follow-up visit/procedure is scheduled. -Patient's blood pressure measured [134/83 ] , and documented in the record ,and patient will follow up with the primary care. -Patient's weight was measured and body mass index above the normal limits and counseling was done. and patient instructed to follow-up with the primary care physician. -Patient was not identified as an unhealthy alcohol user PQRS Measure Charge Sheet PQRS Narrative: Smoking Status Former smoker Pain Intensity [Medial Back] 6 Hx Alcohol Use (MH) No Home Medications: Ambulatory Orders Venlafaxine HCl [Effexor] 37.5 mg PO DAILY 12/27/17 lisinopriL [Zestril] 2.5 mg PO DAILY 12/27/17 Morphine Sulfate 15 mg PO DAILY PRN 02/18/19 Dulaglutide [Trulicity] 0.75 mg SQ JACINTO 04/29/20 Calcium Carbonate/Vitamin D3 [Calcium 600-Vit D3 800 Caplet] 2 each PO DAILY 05/10/20 Controlled Substance Measures - Controlled Substance Measures Is patient prescribed a controlled substance at discharge?: No
== END | disposition home or self-care (01) ==
LOC: PNWHC3 12:28
PROVIDERS: ATTEND Anesthesiology
DX: M51.34 Other intervertebral disc degeneration, thoracic region (principal); M47.814 Spondylosis without myelopathy or radiculopathy, thoracic region; M79.18 Myalgia, other site; Z79.899 Other long term (current) drug therapy; Z79.84 Long term (current) use of oral hypoglycemic drugs; Z87.891 Personal history of nicotine dependence
CPT/HCPCS: 99211

== ENCOUNTER 2020-10-05 06:19 | Day surgery (SDC) | payer MEDICARE ==
[2020-10-04 11:29] VITALS: BMI 38.7
[2020-10-05 06:38] VITALS: RESP 16; TEMP 96.7
[2020-10-05 06:39] LABS: Glucose,Whole Blood 119 mg/dL (75-99)
[2020-10-05] MEDS ORDERED: LIDOCAINE 1% (10MG/ML) FOR IV START INTRADERMA ONE (06:39)
[2020-10-05] MEDS ORDERED: fentaNYL (PF) 50 MCG/ML 2 ML AMP ONE (07:10)
[2020-10-05] MEDS ORDERED: ROPIVACAINE 5MG/ML 20ML VIAL ONE (07:10)
[2020-10-05] MEDS ORDERED: MIDAZOLAM 2 MG/2 ML VIAL ONE (07:10)
[2020-10-05] MEDS ORDERED: IV FLUID CONTINUATION 1,000 ML IV ONE (07:38)
--- NOTE | 2020-10-05 07:38 | P.PCN ---
Date of Procedure: 10/05/20 Description of Procedure: PREOPERATIVE DIAGNOSIS: Thoracic Facet Arthropathy without myelopathy POSTOPERATIVE DIAGNOSIS: Same PROCEDURES: Left Radiofrequency thermocoagulation of T7-T8, T8-T9, T9-T10 medial branches, with fluoroscopic guidance ANESTHESIA: IV sedation with versed and fentanyl and local infiltration with lidocaine 1% 10 ml Imaging: Fluoroscopy was used, images where saved to the medical record PROCEDURE INDICATION: The patient with low back pain secondary to thoracic facet arthropathy who had more than 50% relief of pain with previous diagnostic lumbar medial branch block with local anesthetic. PROCEDURE DESCRIPTION / TECHNIQUE: The patient was seen and identified in the preoperative area. Risks, benefits, complications, including but not limited to risk of infection, bleeding, allergic reactions to the medications and no complete pain relief, and alternatives were discussed with the patient, the patient agreed to proceed with the procedure and signed the consent. IV was started. Vital signs remained stable throughout the procedure. Patient was taken to the OR and time out was completed. The patient was placed in the prone position on the procedure table. The thoracic area was prepped and draped in the usual sterile fashion. Vital signs were closely monitored during the procedure. IV sedation was used during the procedure to decrease patient anxiety. Using AP fluoroscopy the pedicles of the above referenced levels were marked and anesthetized using 1% lidocaine with a 25-gauge 1/2 inch needle. Subsequently, a 20 guage 100-mm radiofrequency cannula with a 10-mm active tip was advanced guided by fluoroscopy to the junction of the pedicle and transverse process of each identified level. Each site then underwent sensory testing at 50 Hz and 0 to 1 volt and motor testing at 2.5 Hz and 0 to 3 volt with local stimulation, no radicular symptoms sensed by the patient and no obvious motor stimulation noted. Thereafter the tested sites underwent radiofrequency thermocoagulation at 80 degrees celsius for 90 seconds after injecting 1 ml of 0.5% ropivacaine. Then after the thermocoagulation was done, 1 ml of the block solution containing ropivaciane 0.5% was injected at the lesioned sites after negative aspiration of CSF and blood and with no paresthesias. Cannulas were retracted. At the end of the procedure, the skin was cleansed and bandages were applied. COMPLICATIONS: No acute complications. DISPOSITION / PLANS: The patient was placed in a supine position and transferred to the recovery area in a stable condition for observation and was discharged from the recovery room after meeting discharge criteria. Home discharge instructions given to the patient by the staff. The patient was reexamined prior to discharge. Have the patient follow up to the right side in the next week or 2.
--- NOTE | 2020-10-05 07:43 | FL ---
Fluoroscopy HISTORY: Pain 22 seconds fluoroscopy time supplied to the referring clinician. 2 intraoperative C-arm images docum ent the procedure. See dictated report from anesthesia.
[2020-10-05 07:56] VITALS: BP 121/82; PULSE 86
== END 2020-10-05 08:07 | disposition home or self-care (01) ==
LOC: ORPAIN 06:19
PROVIDERS: ATTEND Hospitalist
DX: M47.814 Spondylosis without myelopathy or radiculopathy, thoracic region (principal); E11.9 Type 2 diabetes mellitus without complications
CPT/HCPCS: 64633; 64634; 99152

== ENCOUNTER 2020-10-28 12:47 | Day surgery (SDC) | payer MEDICARE ==
[2020-10-22 12:59] VITALS: BMI 39.6
[2020-10-28 13:21] LABS: Glucose,Whole Blood 96 mg/dL (75-99)
[2020-10-28 13:22] VITALS: RESP 16; TEMP 97.5
[2020-10-28] MEDS ORDERED: ROPIVACAINE 5MG/ML 20ML VIAL ONE (13:25)
[2020-10-28] MEDS ORDERED: fentaNYL (PF) 50 MCG/ML 2 ML AMP ONE (13:25)
[2020-10-28] MEDS ORDERED: methylPREDNISolone ACETATE 40 MG/ML 1 ML VIAL ONE (13:25)
[2020-10-28] MEDS ORDERED: MIDAZOLAM 2 MG/2 ML VIAL ONE (13:25)
--- NOTE | 2020-10-28 14:08 | P.PCN ---
Date of Procedure: 10/28/20 Procedure(s) Performed: PREOPERATIVE DIAGNOSIS: Thoracic spondylosis with Facet Arthropathy without myelopathy POSTOPERATIVE DIAGNOSIS: Same PROCEDURES: Right Radiofrequency thermocoagulation of T7-T8, T8-T9, T9-T10 medial branches, with fluoroscopic guidance ANESTHESIA: Moderate sedation with Versed 4 mg and fentanyl 200 g Imaging: Fluoroscopy was used, images where saved to the medical record PROCEDURE INDICATION: The patient with low back pain secondary to thoracic facet arthropathy who had more than 50% relief of pain with previous diagnostic lumbar medial branch block with local anesthetic. PROCEDURE DESCRIPTION / TECHNIQUE: The patient was seen and identified in the preoperative area. Risks, benefits, complications, including but not limited to risk of infection, bleeding, allergic reactions to the medications and no comple te pain relief, and alternatives were discussed with the patient, the patient agreed to proceed with the procedure and signed the consent. IV was started. Vital signs remained stable throughout the procedure. Patient was taken to the OR and time out was completed. The patient was placed in the prone position on the procedure table. The thoracic area was prepped and draped in the usual sterile fashion. Vital signs were closely monitored during the procedure. IV sedation was used during the procedure to decrease patient anxiety. Using AP fluoroscopy the pedicles of the above referenced levels were marked and anesthetized using 1% lidocaine with a 25-gauge 1/2 inch needle. Subsequently, a 20 guage 100-mm radiofrequency cannula with a 10-mm active tip was advanced guided by fluoroscopy to the junction of the pedicle and transverse process of each identified level. Each site then underwent sensory testing at 50 Hz and 0 to 1 volt and motor testing at 2.5 Hz and 0 to 3 volt with local stimulation, no radicular symptoms sensed by the patient and no obvious motor stimulation noted. Thereafter the tested sites underwent radiofrequency thermocoagulation at 80 degrees celsius for 90 seconds after injecting 1 ml of 0.5% ropivacaine. Then after the thermocoagulation was done, 1 ml of the block solution containing ropivaciane 0.5% 4 mL exploded 40 mg of Depo-Medrol , 1 ML of a block solution was used at each level after negative aspiration of CSF and blood and with no paresthesias. Cannulas were retracted. At the end of the procedure, the skin was cleansed and bandages were applied. COMPLICATIONS: No acute complications. DISPOSITION / PLANS: The patient was placed in a supine position and transferred to the recovery area in a stable condition for observation and was discharged from the recovery room after meeting discharge criteria. Home discharge instructions given to the patient by the staff. The patient was reexamined prior to discharge. Have the patient follow up to the right side in the next week or 2.
[2020-10-28] MEDS ORDERED: IV FLUID CONTINUATION 1,000 ML IV ONE (14:11)
--- NOTE | 2020-10-28 14:12 | FL ---
EXAMINATION TYPE: FL guided pain mgmt statistic DATE OF EXAM: 10/28/2020 CLINICAL HISTORY: Mid back pain. TECHNIQUE: Fluoroscopy. COMPARISON: None. FINDINGS: Fluoroscopic guidance was provided during pain relief procedure performed by Dr. Patnoja . A total of 53 seconds of fluoroscopic time was utilized during the procedure and 3 spot images are acquired. Images acquired shows needle localization at several levels off the midline in the thorac ic spine. IMPRESSION: As Above.
--- NOTE | 2020-10-28 14:42 | XR ---
EXAMINATION TYPE: XR chest 1V portable DATE OF EXAM: 10/28/2020 COMPARISON: Chest x-ray August 05, 2020 HISTORY: Pain management with needle injection thorax rule out pneumothorax. TECHNIQUE: Single AP portable frontal upright view of the chest is obtained. FINDINGS: There is chronic parenchymal changes bilaterally with new patchy bibasilar opacities favor ing atelectasis. No pneumothorax noted bilaterally. The cardiac silhouette size is stable and upper l imits of normal with atherosclerotic change in the aortic knob. The osseous structures remain demin eralized. IMPRESSION: No pneumothorax after thoracic spine injections.
[2020-10-28 14:57] VITALS: BP 145/74; PULSE 77
== END 2020-10-28 14:57 | disposition home or self-care (01) ==
LOC: ORPAIN 12:47
PROVIDERS: ATTEND Specialist
DX: M47.814 Spondylosis without myelopathy or radiculopathy, thoracic region (principal); J44.9 Chronic obstructive pulmonary disease, unspecified; E11.9 Type 2 diabetes mellitus without complications; Z88.5 Allergy status to narcotic agent; Z88.2 Allergy status to sulfonamides; Z86.711 Personal history of pulmonary embolism; Z98.890 Other specified postprocedural states
CPT/HCPCS: 71045; 64633; 64634; J2250; J1030; J3010; J2795; 99152; 99153

== ENCOUNTER → 2020-12-08 | Outpatient (CLI) | payer MEDICARE ==
[2020-12-08 12:29] VITALS: BP 115/79; PULSE 103; RESP 18; TEMP 97.7
--- NOTE | 2020-12-08 12:42 | P.PN ---
Subjective Progress Note Date: 12/08/20 This is follow-up visit for this patient with a history of mid back pain she is diagnosed with thoracic spondylosis with thoracic facet arthropathy without myelopathy, and thoracic degenerative disc disease, and myofascial pain syndrome thoracic area, recently we did RFA medial branch block thoracic area bilaterally at T7, T8, T9, T10, T11, and this helped her mid back pain significantly the pain improved more than 60%, but she continued to have some pain above the area where we did the radiofrequency, patient denies any motor or sensory deficit she denies any fever or numbness with an that is no change in the bowel movements or urination Objective - Vital Signs Vital signs: Vital Signs Temp 97.7 F 12/08/20 12:26 Pulse 103 H 12/08/20 12:26 Resp 18 12/08/20 12:26 BP 115/79 12/08/20 12: Pulse Ox 95 12/08/20 12:26 - Exam Physical Examinations : -Constitutiona : Cooperative , not in acute distress . -HEENT : nech : supple , no Lymphadenopathy , normal thyroid size . : eyes : no ptosis , no icterus, no photophobia . - neurologic : Cranial nerve II to XII intact , no focal neurological deffecit . -psychatric : alert , oriented X 3 , appropriate affect , intact judgment and insight . -Lymphatic : no Lymphadenopathy . - musculoskeltal : Thoracic Spine Thoracic facet loading test= Positive Bilaterally Multiple trigger point identified in the thoracic paraspinal muscles between T5 to T6 bilaterally Lumber spine moter stegnth lower extremities ,thigh and legs 5/5 Right side , 5/5 Left side Assessment and Plan Plan: Assessment and plan=1-thoracic spondylosis with thoracic facet arthropathy without myelopathy 2-thoracic degenerative disc disease. 3-myofascial pain syndrome thoracic area. Patient had good pain relief after RFA medial branch thoracic area to T7, T8, T9, T10 Currently patient having pain above the area where we did the RFA, patient could benefit from trigger point injections thoracic paraspinal muscles, and also patient could benefit from physical therapy evaluation and treatment - PQRS measures = - Patient's medications are documented in the chart. -Tobacco use is negative and counseling.Given. -Patient's has received pneumococcal vaccine. -Advanced care planning discussed, patient not eligible. -Opiate contract not signed. -Pain positive and follow-up visit/procedure is scheduled. -Patient's blood pressure measured [115/79 ] , and documented in the record ,and patient will follow up with the primary care. -Patient's weight was measured and body mass index above the normal limits and counseling was done. and patient instructed to follow-up with the primary care physician. -Patient was not identified as an unhealthy alcohol user Time with Patient: Less than 30
== END | disposition home or self-care (01) ==
LOC: PNWHC3 12:13
PROVIDERS: ATTEND Specialist
DX: M47.814 Spondylosis without myelopathy or radiculopathy, thoracic region (principal)
CPT/HCPCS: 99211

== ENCOUNTER 2020-12-28 07:31 | Day surgery (SDC) | payer MEDICARE ==
[2020-12-27 09:59] VITALS: BMI 39.2
[2020-12-28 07:58] VITALS: TEMP 97.4
[2020-12-28 08:10] LABS: Glucose,Whole Blood 103 mg/dL (75-99)
[2020-12-28] MEDS ORDERED: ROPIVACAINE 5MG/ML 20ML VIAL ONE (08:16)
[2020-12-28] MEDS ORDERED: LACTATED RINGERS 1,000 ML BAG IV ONE (08:16)
[2020-12-28] MEDS ORDERED: methylPREDNISolone ACETATE 40 MG/ML 1 ML VIAL ONE (08:16)
[2020-12-28] MEDS ORDERED: MIDAZOLAM 2 MG/2 ML VIAL ONE (08:16)
[2020-12-28] MEDS ORDERED: LACTATED RINGERS 1,000 ML IV SCH (08:30)
[2020-12-28] MEDS ORDERED: IV FLUID CONTINUATION 850 ML IV ONE (08:32)
[2020-12-28 08:38] VITALS: RESP 16
--- NOTE | 2020-12-28 08:44 | P.PCN ---
Date of Procedure: 12/28/20 Preoperative Diagnosis: Thoracic myofascial pain syndrome Postoperative Diagnosis: Thoracic myofascial pain syndrome Procedure(s) Performed: Thoracic trigger point injection 6 Muscle groups : Bilateral Trapezius, paravertebral Anesthesia: MAC Surgeon: Shea Zelaya Estimated Blood Loss (ml): 0 IV fluids (ml): 100 Urine output (ml): 0 Pathology: none sent Condition: stable Disposition: PACU Description of Procedure: Procedure indications: Patient had a history of myofascial pain syndrome. Patient tried conservative therapy. Came here for intervention procedure for better pain relief. Procedure description: Patient was seen and identified in the holding area risk benefits competitions alternative discussed with the patient. Patient agreed to proceed for the procedure signed the consent. IV was started for sedation as per patient request for anxiety. Patient taken to the procedure area. Timeout was completed. A total of 6 trigger point area was marked with a sterile marker. After ChloraPrepX1 used to clean the area. Critical pause was taken. Using 25-gauge 1-1/2 inch needle b[address] half way. He entered in each market site one mL of block solution injected at each level. The block solution cont aining 8 0.5% preservative-free ropivacaine with Depo-Medrol 40 MG. Needle removed intact skin cleaned and Band-Aid applied. Patient tolerated the procedure well. Disposition: Patient discharge home after meeting the discharge criteria from the recovery. Patient scheduled to follow up with the pain clinic in 4 weeks for follow-up visit
[2020-12-28 09:10] VITALS: BP 117/83; PULSE 91
== END 2020-12-28 09:05 | disposition home or self-care (01) ==
LOC: ORPAIN 07:31
DX: M79.18 Myalgia, other site (principal); Z88.5 Allergy status to narcotic agent; Z88.2 Allergy status to sulfonamides; G35 Multiple sclerosis; E11.9 Type 2 diabetes mellitus without complications; K50.90 Crohn's disease, unspecified, without complications; Z98.890 Other specified postprocedural states
CPT/HCPCS: 20553; J2250; J1030; J2795

== ENCOUNTER → 2021-01-26 | Outpatient (CLI) | payer MEDICARE ==
[2021-01-26 12:49] VITALS: BP 155/81; PULSE 85; RESP 16; TEMP 97.6
--- NOTE | 2021-01-26 12:56 | P.PN ---
Subjective Progress Note Date: 01/26/21 This is a follow-up visit for this 65 years old female with a chronic history of severe midback pain, she is diagnosed with thoracic degenerative disc disease thoracic spondylosis with thoracic facet arthropathy, myofascial pain syndrome thoracic paravertebral muscles, previously we have done a thoracic epidural steroid injections under fluoroscopy guidance she had 0 benefits from it, and we did a trigger point injection she had 0 benefits from it, also we have done RFA of the medial branch thoracic area at T7 8, T8 9, T9 10, and currently she is complaining of severe pain above the area where we did the RFA, the pain is constant and increases with any activity, interfere with the quality of life, preventing her from doing any activity and interfere with the sleeping patterns, localized between the shoulder blade area, she denies any motor or sensory deficits Objective - Vital Signs Vital signs: Vital Signs Temp 97.6 F 01/26/21 12:41 Pulse 85 01/26/21 12:41 Resp 16 01/26/21 12:41 BP 155/81 01/26/21 12:41 Pulse Ox 69 L 01/26/21 12:41 - Exam Physical Examinations : -Constitutiona : Cooperative , not in acute distress . -HEENT : nech : supple , no Lymphadenopathy , normal thyroid size . : eyes : no ptosis , no icterus, no photophobia . - neurologic : Cranial nerve II to XII intact , no focal neurological deffecit . -psychatric : alert , oriented X 3 , appropriate affect , intact judgment and insight . -Lymphatic : no Lymphadenopathy . - musculoskeltal : Thoracic Spine Thoracic facet loading test= Positive Bilaterally between T5 to T7 Lumber spine moter stegnth lower extremities ,thigh and legs 5/5 Right side , 5/5 Left side Assessment and Plan Plan: Assessment and plan=1-thoracic spondylosis with thoracic facet arthropathy without myelopathy 2-thoracic degenerative disc disease. Status post RFA medial branch thoracic area to T7, T8, T9, T10 Currently patient having pain above the area where we have done RFA, we will schedule her to have diagnostic medial branch blocks thoracic area at T5, T6 to T7 bilaterally x2 and if she has a positive result we'll proceed with RFA - PQRS measures = - Patient's medications are documented in the chart. -Tobacco use is negative and counseling.Given. -Patient's has received pneumococcal vaccine. -Advanced care planning discussed, patient not eligible. -Opiate contract not signed. -Pain positive and follow-up visit/procedure is scheduled. -Patient's blood pressure measured [155/81 ] , and documented in the record ,and patient will follow up with the primary care. -Patient's weight was measured and body mass index above the normal limits and counseling was done. and patient instructed to follow-up with the primary care physician. -Patient was not identified as an unhealthy alcohol user Time with Patient: Less than 30
== END ==
LOC: PNWHC3 12:26
PROVIDERS: ATTEND Specialist
DX: M47.814 Spondylosis without myelopathy or radiculopathy, thoracic region (principal); M51.34 Other intervertebral disc degeneration, thoracic region; Z98.890 Other specified postprocedural states
CPT/HCPCS: 99211

== ENCOUNTER → 2021-02-18 | Day surgery (SDC) | payer MEDICARE ==
[2021-02-16 15:29] VITALS: BMI 39.0
[~2021-02-18] MED LIST changes: +IOPAMIDOL M200 10 ML VIAL ONE; +IV FLUID CONTINUATION 1,000 ML IV ONE; +LACTATED RINGERS 1,000 ML IV ONE; -LACTATED RINGERS 1,000 ML IV SCH; +LIDOCAINE 1% INJ 10MG/ML (20 ML MDV) ONE; +MIDAZOLAM 2 MG/2 ML VIAL ONE; +ROPIVACAINE 5MG/ML 20ML VIAL ONE; +TRIAMCINOLONE ACETONIDE 40 MG/ML 1 ML VIAL ONE; +fentaNYL (PF) 50 MCG/ML 2 ML AMP ONE
[2021-02-18 12:40] VITALS: TEMP 98.4
[2021-02-18 12:42] LABS: Glucose,Whole Blood 98 mg/dL (75-99)
--- NOTE | 2021-02-18 13:11 | P.PCN ---
Date of Procedure: 02/18/21 Description of Procedure: PREOPERATIVE DIAGNOSIS : 1- Thoracic spondylosis with Facet Arthropathy without myelopathy . POSTOPERATIVE DIAGNOSIS: 1- thoracic spondylosis with Facet Arthropathy without myelopathy . PROCEDURE: Diagnostic bilateral T5, T6, T7 medial branch block under flu oroscopy guidance(fluoroscopy images available in the radiology Department ) ANESTHESIA:, moderate sedation with anesthesia team EBL: Minimal COMPLICATION: None PROCEDURE INDICATION: Chronic low back pain secondary to Facet arthropathy unresponsive to conservative treatment. PROCEDURE DESCRIPTION: the patient was seen and identified in the preop holding area , risks and benefits and possible complications of the procedure and alternative were discussed with the patient, and the patient agreed to proceed with the procedure and signed the consent and vital signs monitored during the procedure and fluoroscopy was used to maximize the benefit and accuracy of the needle placement, and sedation was given to decrease patient anxiety, patient was taken to the procedure room and placed in prone position vital signs monitored in the back prepped with chlorhexidine X3 then under strict sterile technique using a right oblique fluoroscopy ,the junction of the transverse process and the superior articulating process of the right T5, T6, T7 vertebra which corresponding to the fluoroscopy image of the eye of the Leonel dog on the block side for the medial branches and subsequently , after local infiltration of skin and subcu tissuies with Ropivacaine 0.5 % , one mL at each level ,then 25-gauge Quincke-type needles , 5 needle was used , each one of them placed at the junction of the base of the transverse process and the superior articular process at the appropriate level, and the needle was advanced until the periosteum contacted, needle placement confirmed with AP oblique and lateral view and after appropriate needle placement confirmed, and after negative aspiration for heme and CSF and there was no paresthesia 6 mL of Ro pivacaine 0.5% mixed with 20 mg Kenalog was drawn up together , then 1 mL injected at each level after negative aspiration the needle subsequently removed and the same procedure repeated for the left side at left side at T5, T6, T7 levels. At the end of the procedure and the needles removed and a bandage applied after the skin was cleaned the cleaning solution patient taken to recovery room in st able condition and monitors in the recovery room for 20-30 minutes and discharged home in stable condition after discharge criteria met and patient will follow up with the pain clinic in 2-4 weeks
--- NOTE | 2021-02-18 13:23 | FL ---
Fluoroscopy INDICATION: Pain FINDINGS: Fluoroscopy time: 29 seconds. Images obtained: 2. IMPRESSIONS: 1. Documentation of fluoroscopy.
[2021-02-18 13:34] VITALS: BP 130/82; PULSE 72; RESP 17
== END ==
LOC: ORPAIN 11:58
PROVIDERS: ATTEND Anesthesiology
DX: M47.814 Spondylosis without myelopathy or radiculopathy, thoracic region (principal); F32.9 Major depressive disorder, single episode, unspecified; G35 Multiple sclerosis; Z79.899 Other long term (current) drug therapy; Z86.711 Personal history of pulmonary embolism; Z88.5 Allergy status to narcotic agent; Z88.2 Allergy status to sulfonamides
CPT/HCPCS: 64490; 64491; J2250; J3301; J2001; J3010; Q9966; J2795

== ENCOUNTER 2021-03-11 08:46 | Day surgery (SDC) | payer MEDICARE ==
[2021-03-09 14:55] VITALS: BMI 39.2
[~2021-03-11 08:46] MED LIST changes: -IOPAMIDOL M200 10 ML VIAL ONE; -IV FLUID CONTINUATION 1,000 ML IV ONE; -LACTATED RINGERS 1,000 ML IV ONE; +LACTATED RINGERS 1,000 ML IV SCH; -LIDOCAINE 1% INJ 10MG/ML (20 ML MDV) ONE; -MIDAZOLAM 2 MG/2 ML VIAL ONE; -ROPIVACAINE 5MG/ML 20ML VIAL ONE; -TRIAMCINOLONE ACETONIDE 40 MG/ML 1 ML VIAL ONE; -fentaNYL (PF) 50 MCG/ML 2 ML AMP ONE
[2021-03-11] MEDS ORDERED: LIDOCAINE 1% (10MG/ML) FOR IV START INTRADERMA ONE (09:20)
[2021-03-11] MEDS ORDERED: LACTATED RINGERS 1,000 ML IV ONE (09:20)
[2021-03-11 09:22] VITALS: TEMP 96.9
[2021-03-11 09:34] LABS: Glucose,Whole Blood 119 mg/dL (75-99)
[2021-03-11] MEDS ORDERED: methylPREDNISolone ACETATE 40 MG/ML 1 ML VIAL ONE (09:52)
[2021-03-11] MEDS ORDERED: fentaNYL (PF) 50 MCG/ML 2 ML AMP ONE (09:52)
[2021-03-11] MEDS ORDERED: ROPIVACAINE 5MG/ML 20ML VIAL ONE (09:52)
[2021-03-11] MEDS ORDERED: MIDAZOLAM 2 MG/2 ML VIAL ONE (09:52)
--- NOTE | 2021-03-11 10:28 | P.PCN ---
Date of Procedure: 03/11/21 Procedure(s) Performed: PREOPERATIVE DIAGNOSIS : 1- Thoracic spondylosis with Facet Arthropathy without myelopathy . POSTOPERATIVE DIAGNOSIS: 1- thoracic spondylosis with Facet Arthropathy without myelopathy . PROCEDURE: Diagnostic bilateral T5, T6, T7 medial branch block under fluoroscopy guidance(fluoroscopy images available in the radiology Department )# 2nd ANESTHESIA:monitered anesthesia care as per anesthesia department . EBL: Minimal COMPLICATION: None PROCEDURE INDICATION: Chronic low back pain secondary to Facet arthropathy unresponsive to conservative treatment. PROCEDURE DESCRIPTION: the patient was seen and identified in the preop holding area , risks and benefits and possible complications of the procedure and alternative were discussed with the patient, and the patient agreed to proceed with the procedure and signed the consent and vital signs monitored during the procedure and fluoroscopy was used to maximize the benefit and accuracy of the needle placement, and sedation was given to decrease patient anxiety, patient was taken to the procedure room and placed in prone position vital signs monitored in the back prepped with chlorhexidine X3 then under strict sterile technique using a right oblique fluoroscopy ,the junction of the transverse process and the superior articulating process of the right T5, T6, T7 vertebra which corresponding to the fluoroscopy image of the eye of the Leonel dog on the block side for the medial branches and subsequently , after local infiltration of skin and subcu tissuies with Ropivacaine 0.5 % , one mL at each level ,then 25-gauge Quincke-type needles ,3 needle was used , each one of them placed at the junction of the base of the transverse process and the superior articular process at the appropriate level, and the needle was advanced until the periosteum contacted, needle placement confirmed with AP oblique and lateral view and after appropriate needle placement confirmed, and after negative aspiration for heme and CSF and there was no paresthesia 3 mL of Ropivacaine 0.5% mixed with 20 mg Depo-medrole was drawn up together , then half mL injected at each level after negative aspiration the needle subsequently removed and the same procedure repeated for the left side at left side at T5, T6, T7 levels. At the end of the procedure and the needles removed and a bandage applied after the skin was cleaned the cleaning solution patient taken to recovery room in stable condition and monitors in the recovery room for 20-30 minutes and discharged home in stable condition after discharge criteria met and patient will follow up with the pain clinic in 2-4 weeks
--- NOTE | 2021-03-11 10:41 | FL ---
EXAMINATION TYPE: FL guided pain mgmt statistic DATE OF EXAM: 03/11/2021 CLINICAL HISTORY: Back pain. TECHNIQUE: Fluoroscopy. COMPARISON: None. FINDINGS: Fluoroscopic guidance was provided during pain relief procedure performed by Dr. Pantoja . A total of 20 seconds of fluoroscopic time was utilized during the procedure and 4 spot images are acquired. Images acquired shows needle localization at several levels in the thoracic spine. IMPRESSION: As Above.
[2021-03-11 10:57] VITALS: BP 113/72; PULSE 83; RESP 20
--- NOTE | 2021-03-11 11:04 | XR ---
EXAMINATION TYPE: XR chest 1V portable DATE OF EXAM: 03/11/2021 COMPARISON: 10/28/2020 HISTORY: Post procedural pain TECHNIQUE: Single frontal view of the chest is obtained. FINDINGS: Portable upright AP view of the chest was obtained. Heart size is at the upper limits of n ormal in size, stable. Atherosclerotic aortic knob. Coarse interstitial markings suggestive of chroni c interstitial lung changes. Minimal left basilar atelectasis, scarring or pneumonitis. No pleural ef fusion or pneumothorax. Bony demineralization of the osseous structures. IMPRESSION: 1. Minimal left basilar atelectasis, scarring or pneumonitis. Coarse interstitial markings are likely chronic.
== END 2021-03-11 11:12 | disposition home or self-care (01) ==
LOC: ORPAIN 08:46
PROVIDERS: ATTEND Specialist
DX: G89.29 Other chronic pain (principal); M47.814 Spondylosis without myelopathy or radiculopathy, thoracic region; Z88.5 Allergy status to narcotic agent; Z88.2 Allergy status to sulfonamides; Z86.711 Personal history of pulmonary embolism; J44.9 Chronic obstructive pulmonary disease, unspecified; E11.9 Type 2 diabetes mellitus without complications; Z85.3 Personal history of malignant neoplasm of breast; G35 Multiple sclerosis; F32.9 Major depressive disorder, single episode, unspecified; G43.909 Migraine, unspecified, not intractable, without status migrainosus; Z79.891 Long term (current) use of opiate analgesic; Z79.899 Other long term (current) drug therapy
CPT/HCPCS: 71045; 64490; 64491; J2250; J1030; J3010; J2795; 64492

== ENCOUNTER → 2021-03-30 | Outpatient (CLI) | payer MEDICARE ==
[2021-03-30 12:53] VITALS: BP 144/85; PULSE 90; RESP 18; TEMP 98.6
--- NOTE | 2021-03-30 13:14 | P.PN ---
Subjective Progress Note Date: 03/30/21 This is a follow-up visit for this 65 years old female with a chronic history of severe midback pain, she is diagnosed with thoracic degenerative disc disease thoracic spondylosis with thoracic facet arthropathy, myofascial pain syndrome thoracic paravertebral muscles, recently we have done a tthoracic medial branch thoracic area at T5, T6, T7, bilaterally and patient report that she had 100% relief after the first diagnostic block and she got 80% relief after the second diagnostic medial branch blocks thoracic area, she reported that the pain relief was only for short-term( one-day ),currently she is complaining of severe pain the pain is constant and increases with any activity, interfere with the quality of life, preventing her from doing any activity and interfere with the sleeping patterns, localized between the shoulder blade area, she denies any motor or sensory deficits Physical Examinations : -Constitutiona : Cooperative , not in acute distress . -HEENT : nech : supple , no Lymphadenopathy , normal thyroid size . : eyes : no ptosis , no icterus, no photophobia . - neurologic : Cranial nerve II to XII intact , no focal neurological deffecit . -psychatric : alert , oriented X 3 , appropriate affect , intact judgment and insight . -Lymphatic : no Lymphadenopathy . - musculoskeltal : Thoracic Spine Thoracic facet loading test= Positive Bilaterally between T5 to T7 Lumber spine moter stegnth lower extremities ,thigh and legs 5/5 Right side , 5/5 Left side Assessment and Plan Plan: Assessment and plan=1-thoracic spondylosis with thoracic facet arthropathy without myelopathy 2-thoracic degenerative disc disease. Status post RFA medial branch thoracic area to T7, T8, T9, T10 Description has positive result after diagnostic medial branch blocks thoracic T5, T6 to T7 bilaterally x2 we will proceed with RFA - PQRS measures = - Patient's medications are documented in the chart. -Tobacco use is negative and counseling.Given. -Patient's has received pneumococcal vaccine. -Advanced care planning discussed, patient not eligible. -Opiate contract not signed. -Pain positive and follow-up visit/procedure is scheduled. -Patient's blood pressure measured [144/85 ] , and documented in the record ,and patient will follow up with the primary care. -Patient's weight was measured and body mass index above the normal limits and counseling was done. and patient instructed to follow-up with the primary care physician. -Patient was not identified as an unhealthy alcohol user Objective - Vital Signs Vital signs: Vital Signs Temp 98.6 F 03/30/21 12:49 Pulse 90 03/30/21 12:49 Resp 18 03/30/21 12:49 BP 144/85 03/30/21 12:49 Pulse Ox 94 L 03/30/21 12:49
== END ==
LOC: PNWHC3 12:36
PROVIDERS: ATTEND Specialist
DX: M47.814 Spondylosis without myelopathy or radiculopathy, thoracic region (principal); M51.34 Other intervertebral disc degeneration, thoracic region; Z98.890 Other specified postprocedural states; Z88.5 Allergy status to narcotic agent; Z88.2 Allergy status to sulfonamides; Z87.891 Personal history of nicotine dependence
CPT/HCPCS: 99211

== ENCOUNTER 2021-04-29 06:19 | Day surgery (SDC) | payer MEDICARE ==
[2021-04-28 08:22] VITALS: BMI 39.2
[2021-04-29 06:48] VITALS: RESP 16; TEMP 97.3
[2021-04-29 06:50] LABS: Glucose,Whole Blood 151 mg/dL (75-99)
[2021-04-29] MEDS ORDERED: LIDOCAINE 1% INJ 10MG/ML (20 ML MDV) ONE (07:13)
[2021-04-29] MEDS ORDERED: ROPIVACAINE 5MG/ML 20ML VIAL ONE (07:13)
[2021-04-29] MEDS ORDERED: TRIAMCINOLONE ACETONIDE 40 MG/ML 1 ML VIAL ONE (07:13)
[2021-04-29] MEDS ORDERED: fentaNYL (PF) 50 MCG/ML 2 ML AMP ONE (07:19)
[2021-04-29] MEDS ORDERED: MIDAZOLAM 2 MG/2 ML VIAL ONE (07:19)
[2021-04-29] MEDS ORDERED: IV FLUID CONTINUATION 350 ML IV ONE ×2 (07:56)
--- NOTE | 2021-04-29 07:56 | P.PCN ---
Date of Procedure: 04/29/21 Surgeon: Samia Epps Pathology: none sent Condition: stable Disposition: PACU Description of Procedure: Preoperative Diagnosis: Thoracic spondylosis without myelopathy Postoperative Diagnosis: Same as above Procedure(s) Performed: Bilateral thoracic medial branch radiofrequency ablation under fluoroscopic guidance for the medial branches T5, the C6, and T 7 Anesthesia: other (Moderate IV conscious sedation with fentanyl and Versed by the anesthesia Department Surgeon: Saima Epps Pathology: none sent Condition: stable Disposition: PACU Description of Procedure: The patient was seen in preoperative holding area consent was obtained. The painful area on her thoracic spine was marked. The patient then was brought into the procedure room and placed in prone position. ASA monitors applied. Skin was prepped with DuraPrep and draped in a sterile manner. Lidocaine 1% was used to numb the skin up at the target points that were medial to the superior lateral angle of each transverse process. I used 18-gauge 100 mm with 10 mm curved active tip radio frequency ablation needles. After contacting bone at the target points mentioned above I withdrew the needles by 1 or 2 mm and then motor stimulation showed only local twitches of these needles with no radiation around the chest wall. .I injected 1 mL of lidocaine 1% in each needle before starting radio frequency ablation. Radiofrequency ablation started for 90 seconds at 80C.I then prepared a solution of 6 MLS of 0.5 percent ropivacaine +40 mg of Kenalog I then injected 1 mL in each needle. . The patient tolerated procedure well. The opposite side was done in the same manner. [place] were taken out and bandages were applied to the skin. I will order a chest x-ray to rule out pneumothorax in the PACU however before the procedure the needles were protected by the thoracic vertebra and never went deeper and the transverse processes of each vertebra.
[2021-04-29 08:14] VITALS: BP 130/82; PULSE 96
--- NOTE | 2021-04-29 08:30 | XR ---
EXAMINATION TYPE: XR chest 1V portable DATE OF EXAM: 04/29/2021 COMPARISON: 03/11/2021 HISTORY: Post thoracic ablation TECHNIQUE: Single frontal view of the chest is obtained. FINDINGS: There is no focal air space opacity, pleural effusion, or pneumothorax seen. The cardiac silhouette size is within normal limits. The osseous structures are intact. IMPRESSION: No acute process.
--- NOTE | 2021-04-29 09:50 | FL ---
EXAMINATION TYPE: FL guided pain mgmt statistic DATE OF EXAM: 04/29/2021 COMPARISON: NONE HISTORY: Thoracic spine radiofrequency TECHNIQUE: Fluoroscopy. FINDINGS: Fluoroscopic guidance was provided during procedure performed by Dr. Epps. A total of 50 seconds of fluoroscopic time was utilized during the procedure and 2 spot images acquired. IMPRESSION: As Above.
== END 2021-04-29 08:31 | disposition home or self-care (01) ==
LOC: ORPAIN 06:19
PROVIDERS: ATTEND Anesthesiology
DX: M47.814 Spondylosis without myelopathy or radiculopathy, thoracic region (principal); Z88.5 Allergy status to narcotic agent; Z88.2 Allergy status to sulfonamides; J44.9 Chronic obstructive pulmonary disease, unspecified; E11.9 Type 2 diabetes mellitus without complications; Z85.3 Personal history of malignant neoplasm of breast; Z86.711 Personal history of pulmonary embolism; G35 Multiple sclerosis; G43.909 Migraine, unspecified, not intractable, without status migrainosus; Z90.49 Acquired absence of other specified parts of digestive tract; Z79.891 Long term (current) use of opiate analgesic; Z79.899 Other long term (current) drug therapy
CPT/HCPCS: 71045; 64633; 64634; J2250; J3301; J2001; J3010; J2795

== ENCOUNTER → 2021-05-25 | Outpatient (CLI) | payer MEDICARE ==
[2021-05-25 11:11] VITALS: BP 127/83; PULSE 96; RESP 18; TEMP 98.3
--- NOTE | 2021-05-25 11:38 | P.PN ---
Subjective Progress Note Date: 05/25/21 This is a follow-up visit for this 65 years old female with a chronic history of severe midback pain, she is diagnosed with thoracic degenerative disc disease thoracic spondylosis with thoracic facet arthropathy, myofascial pain syndrome thoracic paravertebral muscles, recently we have done RFA thoracic medial branch thoracic area at T5, T6, T7, bilaterally and patient report that she had good relief , she reported that the pain relief ,currently she is complaining of severe pain in the shoulder blade area posteriorly and also in the cervical area the pain is constant and increases with any activity, interfere with the quality of life, preventing her from doing any activity and interfere with the sleeping patterns, localized between the shoulder blade area, she denies any motor or sensory deficits Physical Examinations : -Constitutiona : Cooperative , not in acute distress . -HEENT : nech : supple , no Lymphadenopathy , normal thyroid size . : eyes : no ptosis , no icterus, no mas[place] tophobia . - neurologic : Cranial nerve II to XII intact , no focal neurological deffecit . -psychatric : alert , oriented X 3 , appropriate affect , intact judgment and insight . -Lymphatic : no Lymphadenopathy . - musculoskeltal : Thoracic Spine Thoracic facet loading test= Positive Bilaterally between T5 to T7 Multiple trigger point identified in the thoracic area medial aspect of the shoulder blade bilaterally Multiple trigger point identified in the lower cervical area bilaterally Lumber spine moter stegnth lower extremities ,thigh and legs 5/5 Right side , 5/5 Left side Assessment and Plan Plan: Assessment and plan=1-thoracic spondylosis with thoracic facet arthropathy without myelopathy 2-thoracic degenerative disc disease. 3-myofascial pain syndrome thoracic and cervical area Status post RFA medial branch thoracic area T5 ,T6 ,T7 Patient could benefit from Zanaflex 4 mg twice a day when necessary she could benefit from physical therapy evaluation and treatment for myofascial pain - PQRS measures = - Patient's medications are documented in the chart. -Tobacco use is negative and counseling.Given. -Patient's has received pneumococcal vaccine. -Advanced care planning discussed, patient not eligible. -Opiate contract not signed. -Pain positive and follow-up visit/procedure is scheduled. -Patient's blood pressure measured [127/83 ] , and documented in the record ,and patient will follow up with the primary care. -Patient's weight was measured and body mass index above the normal limits and Objective - Vital Signs Vital signs: Vital Signs Temp 98.3 F 05/25/21 11:06 Pulse 96 05/25/21 11:06 Resp 18 05/25/21 11:06 BP 127/83 05/25/21 11:06 Pulse Ox 95 05/25/21 11:06
== END ==
LOC: PNWHC3 10:55
PROVIDERS: ATTEND Specialist
DX: M47.814 Spondylosis without myelopathy or radiculopathy, thoracic region (principal); M51.34 Other intervertebral disc degeneration, thoracic region; M79.18 Myalgia, other site; Z88.5 Allergy status to narcotic agent; Z88.2 Allergy status to sulfonamides; Z87.891 Personal history of nicotine dependence
CPT/HCPCS: 99211

== ENCOUNTER → 2021-09-14 | Outpatient (CLI) | payer MEDICARE ==
[2021-09-14 11:42] VITALS: BP 128/74; PULSE 95; RESP 18; TEMP 97.4
--- NOTE | 2021-09-14 19:23 | P.PN ---
Subjective Progress Note Date: 09/14/21 This is a follow-up visit for this 66 years old female with a chronic history of severe midback pain, she is diagnosed with thoracic degenerative disc disease thoracic spondylosis with thoracic facet arthropathy, myofascial pain syndrome thoracic paravertebral muscles, and T5 compression fracture, previously we have done RFA thoracic medial branch thoracic area at T5, T6, T7, bilaterally , and we have done a thoracic epidural steroid injection and trigger point injection thoracic area , she reported that the pain relief ,currently she is complaining of severe pain in the shoulder blade area posteriorly and also in the cervical area the pain is constant and increases with any activity, interfere with the quality of life, preventing her from doing any activity and interfere with the sleeping patterns, localized between the shoulder blade area, she denies any motor or sensory deficits Physical Examinations : -Constitutiona : Cooperative , not in acute distress . -HEENT : nech : supple , no Lymphadenopathy , normal thyroid size . : eyes : no ptosis , no icterus, no photophobia . - neurologic : Cranial nerve II to XII intact , no focal neurological deffecit . -psychatric : alert , oriented X 3 , appropriate affect , intact judgment and insight . -Lymphatic : no Lymphadenopathy . - musculoskeltal : Thoracic Spine Thoracic facet loading test= Positive Bilaterally between T5 to T7 Multiple trigger point identified in the thoracic area medial aspect of the shoulder blade bilaterally Multiple trigger point identified in the lower cervical area bilaterally Lumber spine moter stegnth lower extremities ,thigh and legs 5/5 Right side , 5/5 Left side Assessment and Plan Plan: Assessment and plan=1-thoracic spondylosis with thoracic facet arthropathy with out myelopathy 2-thoracic degenerative disc disease. 3-myofascial pain syndrome thoracic and cervical area 4-compression fracture thoracic spine Patient reported that she continued to have pain after interventional pain management , patient reported that she is getting good relief from Zanaflex. Patient could benefit from Zanaflex 4 mg twice a day when necessary dispense 60 with 5 refills and patient will follow up in the pain clinic when necessary, patient will follow up with Dr. Smith for medication refill in the future - PQRS measures = - Patient's medications are documented in the chart. -Tobacco use is negative and counseling.Given. -Patient's has received pneumococcal vaccine. -Advanced care planning discussed, patient not eligible. -Opiate contract not signed. -Pain positive and follow-up visit/procedure is scheduled. -Patient's blood pressure measured [128/74 ] , and documented in the record ,and patient will follow up with the primary care. -Patient's weight was measured and body mass index above the normal limits and Objective - Vital Signs Vital signs: Vital Signs Temp 97.4 F L 09/14/21 11:39 Pulse 95 09/14/21 11:39 Resp 18 09/14/21 11:39 BP 128/74 09/14/21 11:39 Pulse Ox
== END ==
LOC: PNWHC3 11:15
PROVIDERS: ATTEND Specialist
DX: S22.059A Unspecified fracture of T5-T6 vertebra, initial encounter for closed fracture (principal); M47.814 Spondylosis without myelopathy or radiculopathy, thoracic region; M51.34 Other intervertebral disc degeneration, thoracic region; M79.18 Myalgia, other site; Z79.899 Other long term (current) drug therapy; Z88.5 Allergy status to narcotic agent; Z88.2 Allergy status to sulfonamides; Z87.891 Personal history of nicotine dependence
CPT/HCPCS: 99211

== ENCOUNTER → 2023-12-31 | Outpatient (CLI) | payer MEDICARE ==
--- NOTE | 2023-12-31 09:37 | MR ---
EXAMINATION TYPE: MR brain wo/w con DATE OF EXAM: 12/31/2023 7:35 AM CLINICAL INDICATION:Female, 68 years old with history of R93.0 abnormal MRA head; PHH, MS, Hx of stro ke, abnormal MRA brain COMPARISON: 03/05/2023 TECHNIQUE: Multi planar, multi sequence imaging was performed through the brain including: T1, T2, In version recovery, susceptibility weighted imaging and gradient echo imaging and Diffusion weighted im aging. The patient was then given intravenous contrast and multi planar, T1 fat-saturation images wer e obtained. IV Contrast: 10 cc Gadavist FINDINGS: The cantu-white junctions, ventricular system, basal cisterns appear unremarkable. Diffusion-weighted imaging shows no evidence of restricted diffusion to suggest acute/subacute infarct. Intracranial ar terial flow voids are maintained. Midline structures show no abnormality. Scattered foci of high T2 s ignal intensity are seen within the periventricular white matter. The susceptibility weighted images do not reveal any evidence for micro-hemorrhage. After administration of gadolinium, no abnormal enha ncement is seen. 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 The bone marrow signal is within normal limits. Paranasal sinuses and mastoid air cells: No significant paranasal sinus disease. Visualized orbits: Orbital contents are intact. IMPRESSION: 1. No evidence of intracranial mass, acute/subacute infarct, or abnormal enhancement. 2. No evidence for active demyelination with minimal nonspecific white matter changes. Findings could be compatible with the diagnosis of multiple sclerosis provided. 3. 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
== END | disposition home or self-care (01) ==
LOC: RADMRIMAIN 06:19
PROVIDERS: ATTEND Psychiatry & Neurology Neurology
DX: R93.0 Abnormal findings on diagnostic imaging of skull and head, not elsewhere classified (principal); G45.0 Vertebro-basilar artery syndrome; G35 Multiple sclerosis; I66.3 Occlusion and stenosis of cerebellar arteries; Z86.73 Personal history of transient ischemic attack (TIA), and cerebral infarction without residual deficits; Z87.59 Personal history of other complications of pregnancy, childbirth and the puerperium
CPT/HCPCS: 70553; A9585

== ENCOUNTER → 2024-01-04 | Outpatient (CLI) | payer MEDICARE ==
--- NOTE | 2024-01-06 09:19 | MR ---
MR left ankle. HISTORY: Disorder of synovium. COMPARISON: None TECHNIQUE: Multiecho multiplanar images of the left ankle were obtained without contrast. FINDINGS: The osseous structures are intact and there is no bone contusion or fracture. There are no osteochond ral defects. There is no joint effusion. The sinus Tarsi is normal. There is retrocalcaneal bursitis and thickening of the distal Achilles tendon. There is mild abnormal signal intensity within the tendon consistent with tendinosis but no discrete tear. There is no retr operitoneal bursitis. There is no os trigonum. Plantar soft tissues are normal. The flexor and extension tendons are intact and there is no tear or inflammation. There is no ligamentous injury. IMPRESSION: Achilles tendinosis and retrocalcaneal bursitis as described above. No other significant abnormality seen.
--- NOTE | 2024-01-06 09:25 | MR ---
MRI right ankle without contrast HISTORY: Disorder of the synovium. COMPARISON: None. TECHNIQUE: Multiecho multiplanar images of the right ankle were obtained without contrast. Findings: The osseous structures are intact there is no bone contusion or fracture. There are no osteochondral defects. Ankle mortise is intact and there is no joint effusion. The sinus tarsi is normal. There is retrocalcaneal fluid and inflammation. There is thickening of the Achilles tendon with abnor mal signal intensity within the substance of the tendon but no discrete tear. The findings are consis tent with marked Achilles tendinitis with retrocalcaneal bursitis.. The flexor and extensor tendons are intact without tear or inflammation. There is no ligamentous injury. The plantar soft tissues are normal. IMPRESSION: Marked Achilles tendinosis and retrocalcaneal bursitis. No other significant abnormality.
== END | disposition home or self-care (01) ==
LOC: RADMRIMAIN 07:39
PROVIDERS: ATTEND Internal Medicine
DX: M76.62 Achilles tendinitis, left leg (principal); M76.61 Achilles tendinitis, right leg

== ENCOUNTER → 2024-03-21 | Outpatient (CLI) | payer MEDICARE ==
[2024-03-21 16:49] LABS: Basophils # (A) 0.08 X 10*3/uL (0.00-0.10); Basophils % (A) 0.8 %; Eosinophils # (A) 0.25 X 10*3/uL (0.04-0.35); Eosinophils % (A) 2.6 %; HCT 47.5 % (37.2-46.3); HGB 14.5 g/dL (12.0-15.0); Lymphocytes # (A) 3.31 X 10*3/uL (0.90-5.00); Lymphocytes % (A) 34.3 %; MCH 28.9 pg (27.0-32.0); MCHC 30.5 g/dL (32.0-37.0); MCV 94.8 FL (80.0-97.0); Mean Platelet Volume 11.7 FL (9.5-12.2); Monocytes # (A) 0.77 X 10*3/uL (0.20-1.00); NRBC Per 100 WBC 0 X 10*3/uL (0.00-0.01); Neutrophils # (A) 5.21 X 10*3/uL (1.80-7.70); Neutrophils % (A) 54.1 %; Platelet Count 253 X 10*3/uL (140-440); RBC 5.01 X 10*6/uL (4.10-5.20); RDW 13.9 % (11.5-14.5); WBC 9.64 X 10*3/uL (4.50-10.00)
== END | disposition home or self-care (01) ==
LOC: LABPAT 10:42
PROVIDERS: ATTEND Obstetrics & Gynecology
DX: Z01.818 Encounter for other preprocedural examination (principal); I10 Essential (primary) hypertension
CPT/HCPCS: 85025; 93005

== ENCOUNTER 2024-04-01 06:15 | Day surgery (SDC) | payer MEDICARE ==
[2024-03-31 10:16] VITALS: BMI 32.3
[~2024-04-01 06:15] MED LIST changes: -LACTATED RINGERS 1,000 ML IV SCH; +Pre Op ABX Message 1 EACH MISC MISCELLANE ONE
[2024-04-01] MEDS ORDERED: LACTATED RINGERS 1,000 ML IV SCH (06:23)
[2024-04-01] MEDS: IV FLUID CONTINUATION 1,000 ML IV ONE (07:07)
[2024-04-01 07:08] LABS: Glucose,Whole Blood 102 mg/dL (70-110)
[2024-04-01] MEDS: DEXAMETHASONE SOD PHOSPHATE 4 MG/ML 1 ML VIAL IV ONE (07:11)
[2024-04-01] MEDS: ONDANSETRON 4 MG/2 ML VIAL IVP ONE (07:11)
--- NOTE | 2024-04-01 07:22 | P.HPOB ---
History of Present Illness H&P Date: 04/01/24 Chief Complaint: vulvar cyst 68-year-old presents with a six-month history of cystic mass on the right vulva a transplacental blood. She's had the Emily before and a [employer] surgeon removed broad ligament cyst on that side. Review of Systems All systems: negative Constitutional: Denies chills, Denies fever Eyes: denies blurred vision, denies pain Ears, nose, mouth and throat: Denies headache, Denies sore throat Cardiovascular: Denies chest pain, Denies shortness of breath Respiratory: Denies cough Gastrointestinal: Denies abdominal pain, Denies diarrhea, Denies nausea, Denies vomiting Genitourinary: Denies dysuria, Denies hematuria Musculoskeletal: Denies myalgias Integumentary: Denies pruritus, Denies rash Neurological: Denies numbness, Denies weakness Psychiatric: Denies anxiety, Denies depression Endocrine: Denies fatigue, Denies weight change Past Medical History Past Medical History: Blood Disorder, Cancer, CVA/TIA, Diabetes Mellitus, Deep Vein Thrombosis (DVT), Hearing Disorder / Deafness, Musculoskeletal Disorder, Neurologic Disorder, Osteoarthritis (OA), Pulmonary Embolus (PE), Skin Disorder Additional Past Medical History / Comment(s): Bursitis in heels. Multiple Sclerosis, Crohns, hx breast cancer-w/ radiation 2014, basal/squamous skin c ancers, hx ITP, hx PE post-opin 1999. Hx PE's and DVT's, CVA, sepsis, MRSA and TIA X2 post op abdominal hernia repair X2/abdomianl wall reconstruction 2021. No residual effects from CVA/TIA's. Chronic back pain. Hx migraines. T5 compression fracture. Raynauds. Eczema. Hard of hearing. History of Any Multi-Drug Resistant Organisms: MRSA Date of last positivie culture/infection: 2022 MDRO Source:: abd Past Surgical History: Appendectomy, Bowel Resection, Breast Surgery, Cholecystectomy, Hernia Repair Additional Past Surgical History / Comment(s): Multiple bowel resections, colostomy with later reversal, multiple fistula repairs, right breast lumpectomy, Pain Clinic Procedures, bilateral cataract surgery, Abdominal hernia repair X2 with abdominal wall reconstruction - became infected, had to be re- opened and part of mesh removed, wound vac in abd for 7 months in 2021, left bartholin gland removed. Past Anesthesia/Blood Transfusion Reactions: Family History of Problems w/ Anesthesia Additional Past Anesthesia/Blood Transfusion Reaction / Comment(s): 3 sisters PONV, one sister stopped breathing. Hx "immunoglobulin transfusion with no problem." Past Psychological History: Depression Smoking Status: Former smoker Past Alcohol Use History: Rare Additional Past Alcohol Use History / Comment(s): Smoked for 20 years, 2 ppd, quit in 1999. Past Drug Use History: None Reported - Past Family History Father Family Medical History: Cancer Additional Family Medical History / Comment(s): Esophageal cancer. Mother Family Medical History: Cancer Additional Family Medical History / Comment(s): pulm hypertension Brother(s) Family Medical History: Cancer Additional Family Medical History / Comment(s): 1 brother prostate cancer, 1 brother had jaw cancer. Sister(s) Family Medical History: Cancer Additional Family Medical History / Comment(s): 1 sister had cervical cancer, 1 sister had uterine cancer. Medications and Allergies Home Medications Medication Instructions Recorded Confirmed Type Morphine Sulfate 15 mg PO DAILY PRN 02/18/19 03/31/24 History Dulaglutide [Trulicity] 0.75 mg SQ WE 04/29/20 03/31/24 History Calcium Carbonate/Vitamin D3 2 each PO DAILY 05/10/20 03/31/24 History [Calcium 600-Vit D3 800 Caplet] ALPRAZolam [Xanax] 0.5 mg PO HS 03/31/24 03/31/24 History Alirocumab [Praluent Pen] 75 mg SQ Q14D 03/31/24 03/31/24 History Biotin (Unknown Dose) 1 tab PO W/LUNCH 03/31/24 03/31/24 History Clopidogrel [Plavix] 75 mg PO HS 03/31/24 03/31/24 History DULoxetine HCL [Cymbalta] 20 mg PO QAM 03/31/24 03/31/24 History Doxycycline [Vibramycin] 100 mg PO QAM 03/31/24 03/31/24 History Gabapentin 300 mg PO TID 03/31/24 03/31/24 History lisinopriL [Zestril] 5 mg PO QAM 03/31/24 03/31/24 History tiZANidine HCL [Zanaflex] 4 mg PO HS 03/31/24 03/31/24 History Allergies Allergy/AdvReac Type Severity Reaction Status Date / Time codeine Allergy severe Verified 04/01/24 06:43 Nausea sulfasalazine Allergy severe Verified 04/01/24 06:43 [From Azulfidine] headache Exam Osteopathic Statement: *. No significant issues noted on an osteopathic structural exam other than those noted in the History and Physical/Consult. Vital Signs Temp Pulse Resp BP Pulse Ox 04/01/24 07:00 98.3 F 83 16 117/57 94 L Intake and Output 03/31/24 04/01/24 04/01/24 22:59 06:59 14:59 Other: Weight 109.2 kg Heart: Regular rate and rhythm Lungs: Clear to auscultation bilaterally Abdomen: Soft, nontender Extremities: Negative Homans sign Vaginal exam: On the right vulva in the labia majora just posterior to lip there is a 2 cm cystic mass that is draining a small amount of serosanguineous drainage tender and inflamed Assessment and Plan (1) Bartholin's gland cyst Current Visit: Yes Status: Acute Code(s): N75.0 - CYST OF BARTHOLIN'S GLAND SNOMED Code(s): 21036085 Plan: marsupialization of Bartholin's gland cyst
[2024-04-01] MEDS ORDERED: MIDAZOLAM 2 MG/2 ML VIAL ONE (07:31)
[2024-04-01] MEDS ORDERED: LIDOCAINE 1% INJ 10MG/ML (20 ML MDV) ONE (07:31)
[2024-04-01] MEDS ORDERED: PROPOFOL 10 MG/ML 20 ML VIAL IV ONE (07:31)
[2024-04-01] MEDS: fentaNYL (PF) 50 MCG/ML 2 ML AMP IV PRN (07:31)
[2024-04-01] MEDS ORDERED: KETOROLAC 15 MG/ML 1 ML VIAL ONE (07:31)
[2024-04-01] MEDS ORDERED: fentaNYL (PF) 50 MCG/ML 2 ML AMP ONE (07:31)
[2024-04-01] MEDS: BACITRACIN ZINC 500 UNIT/GM OINT 28.4 GM TUBE TOPICAL ONE (07:58)
[2024-04-01 08:25] VITALS: TEMP 97.6
--- NOTE | 2024-04-01 08:42 | P.OP ---
Date of Procedure: 04/01/24 Preoperative Diagnosis: 1. bartholin gland cyst Postoperative Diagnosis: same Procedure(s) Performed: marsupialization and packing of right bartholin gland cyst Anesthesia: SHREYA Surgeon: Marylin Adams Estimated Blood Loss (ml): 5 IV fluids (ml): 300 Pathology: none sent Condition: stable Disposition: PACU Description of Procedure: patient is taken the operating room and general anesthesia was attained difficulty inches prepped and draped in normal sterile fashion in the dorsal lithotomy position, legs placed in the candycane stirrups. Examination of the vagina revealed the area of concern on the right side that is still leaking serosanguineous fluid. I opened this area up and explored with a hemostat. Did go about 2 cm to 3 cm deep on the anterior portion and 1 cm in the posterior portion. I used 3-0 Vicryl to close the area around the opening the left opening available. I packed that area with quarter inch iodoform gauze. We'll see the patient back in a few days to see if she is tolerating this and possibly remove the gauze
[2024-04-01] MEDS: HYDROmorphone 0.5 MG/0.5 ML SYRINGE IVP STA (08:59)
[2024-04-01 09:03] VITALS: RESP 16
[2024-04-01 09:15] VITALS: PULSE 79
[2024-04-01 10:11] VITALS: BP 123/74
== END 2024-04-01 10:23 | disposition home or self-care (01) ==
LOC: OR 06:15
PROVIDERS: ATTEND Obstetrics & Gynecology
DX: N75.0 Cyst of Bartholin's gland (principal); E11.9 Type 2 diabetes mellitus without complications; F32.A Depression, unspecified; G35 Multiple sclerosis; G89.29 Other chronic pain; I73.00 Raynaud's syndrome without gangrene; K50.90 Crohn's disease, unspecified, without complications; M19.90 Unspecified osteoarthritis, unspecified site; Z79.02 Long term (current) use of antithrombotics/antiplatelets; Z85.3 Personal history of malignant neoplasm of breast; Z85.828 Personal history of other malignant neoplasm of skin; Z86.711 Personal history of pulmonary embolism; Z86.718 Personal history of other venous thrombosis and embolism; Z86.73 Personal history of transient ischemic attack (TIA), and cerebral infarction without residual deficits; Z87.891 Personal history of nicotine dependence; Z88.2 Allergy status to sulfonamides; Z90.49 Acquired absence of other specified parts of digestive tract; Z98.890 Other specified postprocedural states; Z79.84 Long term (current) use of oral hypoglycemic drugs; Z79.899 Other long term (current) drug therapy
CPT/HCPCS: 88304; 56440; J2250; J1100; J2405; J2001; J3010; J1885; J2704; J1170

== ENCOUNTER → 2024-08-20 | Outpatient (CLI) | payer MEDICARE ==
--- NOTE | 2024-08-23 19:59 | US ---
EXAMINATION TYPE: US kidneys/renal and bladder DATE OF EXAM: 08/20/2024 COMPARISON: NONE CLINICAL INDICATION: Female, 69 years old with history of R31.9 HEMATURIA; Hx DM TECHNIQUE: Grayscale imaging of the bilateral kidneys and urinary bladder: FINDINGS: EXAM MEASUREMENTS: Right Kidney: 11.6 x 5.6 x 5.3 Left Kidney: 10.7 x 5.5 x 5.7 Post Void Residual Volume: NAmL Right Kidney: wnl, no evidence for hydronephrosis, mass or renal calculus. Left Kidney: wnl, no evidence for hydronephrosis, mass or renal calculus. Bladder: wnl Bilateral Jets seen: Yes Normal Post Void Residual: NA There is no evidence for hydronephrosis at this point in time. No nephrolithiasis is seen. No daniel s are identified. The urinary bladder is anechoic. IMPRESSION: No significant abnormality appreciated [facility] Sharla Palmer, , 08/23/2024 7:56 PM
== END | disposition home or self-care (01) ==
LOC: RADUSWWP 15:03
PROVIDERS: ATTEND Internal Medicine
DX: R31.9 Hematuria, unspecified (principal)
CPT/HCPCS: 76770

== ENCOUNTER → 2025-01-01 | Outpatient (CLI) | payer MEDICARE ==
--- NOTE | 2025-01-01 11:34 | PE ---
EXAMINATION TYPE: PET CT fusion skull to thigh DATE OF EXAM: 01/01/2025 COMPARISON: NONE HISTORY: Right-sided breast cancer diagnosed 2015 with new elevated lab values CEA. TECHNIQUE: Following the intravenous administration of 9.63 mCi of F-18 FDG, whole body images are p erformed from the skull base to the midthigh. Images are reviewed on the computer in the coronal, ax ial, and sagittal planes. Reconstructed rotating images are created on independent workstation and r eviewed on the computer. A localization and attenuation correction CT is performed in conjunction w ith the PET scan. Blood glucose level equals 89 SCAN: Initial Scan FINDINGS: SKULL BASE AND NECK: No areas of abnormal hypermetabolic uptake identified. CHEST, MEDIASTINUM, AND HILAR REGION: Surgical posttreatment changes to the right breast identified o n axial image 96. No abnormal hypermetabolic uptake right breast or axillary region. No abnormal meta bolic uptake in the thorax. ABDOMEN AND PELVIS: Normal excretion is seen. Nonspecific bowel uptake is identified. No suspicious a bnormal hypermetabolic uptake. OSSEOUS STRUCTURES: No suspicious abnormal hypermetabolic uptake. OTHER CT: Bilateral aphakia is seen. Mild calcified plaque left carotid bulb level. No significant co ronary artery calcification. Moderate underlying emphysematous change in the upper lungs is present. Technical clips are seen. Extensive surgical change to the bowel loops seen in the anterior abdominal wall overlying the pelvis. Filled prominent bowel loops are seen in the anterior pelvis. There is sc oliotic curvature in the thoracic spine. IMPRESSION: No abnormal suspicious hypermetabolic uptake just active neoplastic recurrence. PET/CT f indings would not override evaluation with annual mammogram and should be correlated clinically. [facility], , 01/01/2025 11:32 AM
== END | disposition home or self-care (01) ==
LOC: RADPETMAIN 07:02
PROVIDERS: ATTEND Internal Medicine
DX: C50.811 Malignant neoplasm of overlapping sites of right female breast (principal)
CPT/HCPCS: 78815; A9552